=== PATIENT | male | born 1955 | race Caucasian/White ===

== ENCOUNTER → 2017-01-09 | Outpatient (CLI) | payer BC ==
--- NOTE | 2017-01-09 15:30 | CT ---
EXAMINATION TYPE: CT sinus wo con DATE OF EXAM: 01/09/2017 COMPARISON: 04/25/2008 HISTORY: Facial pressure and pain with congestion since august of 2016. CT DLP: 615.9 mGycm. Automated Exposure Control for Dose Reduction was Utilized. TECHNIQUE: CT scan of the sinuses is performed without contrast, axial images are obtained, coronal r eformatted images are also reviewed. FINDINGS: The paranasal sinuses including the frontal, ethmoid, sphenoid, and maxillary sinuses bila terally are well-aerated without abnormal opacification. The ostiomeatal complex is patent bilateral ly on the coronal images. Visualized portion of mastoid air cells show no abnormal opacification. The globes are intact bilate rally. Nasal septal deviation noted. Hypoplastic frontal sinus. Bilateral lexus bullosa noted. IMPRESSION: The sinuses are clear and the ostiomeatal complex is patent bilaterally.
== END | disposition home or self-care (01) ==
LOC: RADCTMAIN 14:56
PROVIDERS: ATTEND Otolaryngology
DX: J32.9 Chronic sinusitis, unspecified (principal)
CPT/HCPCS: 70486

== ENCOUNTER 2017-02-13 07:47 | Day surgery (SDC) | payer BC ==
--- NOTE | 2017-02-13 08:42 | US ---
EXAMINATION TYPE: US thyroid st tissue head/neck DATE OF EXAM: 02/13/2017 COMPARISON: NONE CLINICAL HISTORY: R22.1 swelling/mass/lump neck. Right submandibular hypoechoic mass measuring 5.5 x 1.5 x 3.3cm. There is heterogeneous hypoechoic well-defined oval-shaped submandibular solid mass along inferior as pect on images saved. IMPRESSION: A 5.5 cm inferior right submandibular solid mass is confirmed, neoplasm is not excluded, further investigation with ultrasound guided fine-needle aspiration is being performed currently.
[2017-02-13 09:00] VITALS: RESP 14; TEMP 98
[2017-02-13 09:54] VITALS: BP 180/100; PULSE 73
--- NOTE | 2017-02-13 10:49 | US ---
EXAMINATION TYPE: US core biopsy thorax or neck, fine-needle aspiration of submandibular mass DATE OF EXAM: 02/13/2017 COMPARISON: Ultrasound same day HISTORY: Right submandibular mass PROCEDURE: Maximal barrier technique was utilized. The skin overlying the right thyroid nodule was l ocalized with ultrasound and the overlying skin prepped and draped. Ultrasound used with dental laboratory technology teacher nique. Lidocaine used for local anesthesia, aspiration performed of the 20-gauge and subsequently 21 -gauge needle, and a skin emily made with a scalpel. 18-gauge core needle advanced into the nodule un bailee ultrasound guidance core specimen obtained and submitted in formalin to pathology. Following the procedure hemostasis achieved. No immediate complication. The patient remained in stable condition and was discharged. IMPRESSION: Status post ultrasound guided core biopsy and fine-needle aspiration of right submandibul ar mass, pathology pending.
--- NOTE | 2017-02-13 14:18 | XR ---
EXAMINATION TYPE: XR chest 2V DATE OF EXAM: 02/13/2017 COMPARISON: NONE HISTORY: Cough, right-sided neck mass TECHNIQUE: Frontal and lateral views of the chest are obtained. FINDINGS: There is no focal air space opacity, pleural effusion, or pneumothorax seen. The cardiac silhouette size is within normal limits. The patient is rotated. Postop changes are present in the up per abdomen. The osseous structures are intact. IMPRESSION: No acute cardiopulmonary process.
== END 2017-02-13 09:59 | disposition home or self-care (01) ==
LOC: RADPROMAIN 07:47 → EDSTATUS 08:00 → RADPROMAIN 09:59
PROVIDERS: ATTEND Otolaryngology
DX: R22.1 Localized swelling, mass and lump, neck (principal); R05 Cough
CPT/HCPCS: 10022; 20206; 21550; 42400; 71020; 76536; 76942; 88173; 88305

== ENCOUNTER → 2017-03-21 | Outpatient (CLI) | payer BC ==
--- NOTE | 2017-03-21 17:28 | CT ---
EXAMINATION TYPE: CT soft tissue neck w con DATE OF EXAM: 03/21/2017 COMPARISON: NONE HISTORY: Right sided neck swelling and pain. CT DLP: 844 mGycm CONTRAST: Patient injected with 100 mL of Omnipaque 300. TECHNIQUE: Axial images at 3 mm thick sections. Reconstructed images in the coronal plane and sagitt al plane are reviewed. FINDINGS: Limited CT sections are obtained the lung apices. The lung apices appear clear. CT neck: The torus tubarius and fossa of Rosenmuller are normal. Dance Studio Manager spaces are normal. Para nasal sinuses and mastoid air cells are clear. Parotid glands appear normal and symmetrical. Submandibular glands, are normal. The right submandib ular gland however is displaced anteriorly by a large oval mass measuring 2.5 x 3.6 cm. Enlarged jugu lodigastric lymph node could be considered. Parapharyngeal spaces are normal. The hypopharynx appears within normal limits. Vocal cord level appear symmetrical. Thyroid as visualized is normal. Osseous structures are normal. Note is made of an enlarged ascending thoracic aorta measuring 4.1 cm. IMPRESSIONS: 1. Enlarged mass between the right submandibular gland and sternocleidomastoid muscle extending towar ds the jugulodigastric region. Jugulodigastric abnormal lymph node is favored within the differential . Consider ultrasound for additional evaluation. 2. Ascending thoracic aortic aneurysm measuring 4.1 cm AP dimension.
== END | disposition home or self-care (01) ==
LOC: RADCTMAIN 16:04
PROVIDERS: ATTEND Otolaryngology
DX: R22.1 Localized swelling, mass and lump, neck (principal); I71.2 Thoracic aortic aneurysm, without rupture
CPT/HCPCS: 70491; Q9967

== ENCOUNTER 2018-03-04 09:58 | Emergency (ER) | payer BC ==
[2018-03-04] MEDS ORDERED: hydrALAZINE HCL 20 MG/ML 1 ML VIAL IVP STA (10:29)
--- NOTE | 2018-03-04 10:33 | ED ---
General Adult HPI - General Chief complaint: Recheck/Abnormal Lab/Rx Stated complaint: Hypertensive Time Seen by Provider: 03/04/18 10:00 Source: patient, RN notes reviewed Mode of arrival: ambulatory Limitations: no limitations - History of Present Illness Initial comments: This is a 62-year-old male who presents emergency Department complaining of his blood pressure being high. Patient states he felt a little off work and this is how he feels when his blood pressure goes high. Patient states he did his blood pressure was 211 systolic so decided come the emergency department. Patient states he had a little tingling in his left arm but no actual weakness. Patient denies any headache patient denies blurred vision patient denies slurred speech. Patient denies any numbness or weakness chest tingling in the left arm a little. Patient denies any chest pain difficulty breathing or shortness of breath. Patient denies any abdominal pain patient denies nausea vomiting diarrhea. Patient denies any recent fever chills or cough. - Related Data Home Medications Medication Instructions Recorded Confirmed Aspirin EC [Ecotrin Low Dose] 81 mg PO DAILY PRN 03/04/18 03/04/18 Losartan [Cozaar] 50 mg PO DAILY 03/04/18 03/04/18 Allergies Allergy/AdvReac Type Severity Reaction Status Date / Time No Known Allergies Allergy Verified 03/04/18 10:33 Review of Systems ROS Statement: Those systems with pertinent positive or pertinent negative responses have been documented in the HPI. ROS Other: All systems not noted in ROS Statement are negative. Past Medical History Past Medical History: Hypertension, Renal Disease Additional Past Medical History / Comment(s): Hx of kidney stones, borderline high cholesterol. History of Any Multi-Drug Resistant Organisms: None Reported Past Surgical History: Cholecystectomy Past Anesthesia/Blood Transfusion Reactions: No Reported Reaction Past Psychological History: No Psychological Hx Reported Smoking Status: Former smoker Past Alcohol Use History: None Reported Past Drug Use History: None Reported - Past Family History Mother Family Medical History: CVA/TIA General Exam - General Exam Comments Initial Comments: GENERAL: Patient is well-developed and well-nourished. Patient is nontoxic and well- hydrated and is in no acute distress. ENT: Neck is soft and supple. No significant lymphadenopathy is noted. Oropharynx is clear. Moist mucous membranes. Neck has full range of motion without eliciting any pain. There is no thyroid enlargement and no masses were felt. EYES: The sclera were anicteric and conjunctiva were pink and moist. Extraocular movements were intact and pupils were equal round and reactive to light. Eyelids were unremarkable. PULMONARY: Unlabored respirations. Good breath sounds bilaterally. No audible rales rhonchi or wheezing was noted. CARDIOVASCULAR: There is a regular rate and rhythm without any murmurs gallops or rubs. Femoral pulses are equal bilaterally ABDOMEN: Soft and nontender with normal bowel sounds. No palpable organomegaly was noted. There is no palpable pulsatile mass. SKIN: Skin is clear with no lesions or rashes and otherwise unremarkable. NEUROLOGIC: Patient is alert and oriented x3. Cranial nerves II through XII are grossly intact. Motor and sensory are also intact. Normal speech, volume and content. Symmetrical smile. Cerebellar exam grossly intact. MUSCULOSKELETAL: Normal extremities with adequate strength and full range of motion. No lower extremity swelling or edema. No calf tenderness. LYMPHATICS: No significant lymphadenopathy is noted PSYCHIATRIC: Normal psychiatric evaluation. Normal interpersonal interactions appears functionally intact in deals appropriately with others. No signs of depression. No signs of anxiety. No delusions. No hallucinations. Limitations: no limitations Course Vital Signs 03/04/18 03/04/18 03/04/18 09:59 10:37 11:00 Temperature 98.2 F Pulse Rate 88 73 76 Respiratory 20 20 18 Rate Blood Pressure 191/107 184/107 150/71 O2 Sat by Pulse 98 99 98 Oximetry 03/04/18 11:30 Temperature Pulse Rate 73 Respiratory 18 Rate Blood Pressure 121/65 O2 Sat by Pulse 99 Oximetry Medical Decision Making - Medical Decision Making EKG shows normal sinus rhythm at 79 bpm MA interval 240 QRS is 94 QT interval 384 QTC is 440. Patient's EKG shows no ST segment elevation or depression. - Lab Data Result diagrams: 03/04/18 10:25 03/04/18 10:25 Lab Results 03/04/18 03/04/18 03/04/18 Range/Units 10:25 10:25 10:25 WBC 5.6 (3.8-10.6) k/uL RBC 4.90 (4.30-5.90) m/uL Hgb 14.7 (13.0-17.5) gm/dL Hct 43.9 (39.0-53.0) % MCV 89.5 (80.0-100.0) fL MCH 30.0 (25.0-35.0) pg MCHC 33.5 (31.0-37.0) g/dL RDW 12.9 (11.5-15.5) % Plt Count 328 (150-450) k/uL Neutrophils % 61 % Lymphocytes % 29 % Monocytes % 6 % Eosinophils % 2 % Basophils % 0 % Neutrophils # 3.4 (1.3-7.7) k/uL Lymphocytes # 1.6 (1.0-4.8) k/uL Monocytes # 0.3 (0-1.0) k/uL Eosinophils # 0.1 (0-0.7) k/uL Basophils # 0.0 (0-0.2) k/uL PT (9.0-12.0) sec INR (<1.2) APTT (22.0-30.0) sec Sodium 143 (137-145) mmol/L Potassium 4.3 (3.5-5.1) mmol/L Chloride 108 H (98-107) mmol/L Carbon Dioxide 25 (22-30) mmol/L Anion Gap 10 mmol/L BUN 14 (9-20) mg/dL Creatinine 0.92 (0.66-1.25) mg/dL Est GFR (CKD-EPI)AfAm >90 (>60 ml/min/1.73 sqM) Est GFR (CKD-EPI)NonAf >90 (>60 ml/min/1.73 sqM) Glucose 116 H (74-99) mg/dL Calcium 9.4 (8.4-10.2) mg/dL Magnesium 2.1 (1.6-2.3) mg/dL Total Bilirubin 0.5 (0.2-1.3) mg/dL AST 27 (17-59) U/L ALT 36 (21-72) U/L Alkaline Phosphatase 59 (38-126) U/L Total Creatine Kinase 130 (55-170) U/L CK-MB (CK-2) 0.6 (0.0-2.4) ng/mL CK-MB (CK-2) Rel Index 0.5 Troponin I <0.012 (0.000-0.034) ng/mL Total Protein 7.2 (6.3-8.2) g/dL Albumin 4.3 (3.5-5.0) g/dL 03/04/18 Range/Units 10:25 WBC (3.8-10.6) k/uL RBC (4.30-5.90) m/uL Hgb (13.0-17.5) gm/dL Hct (39.0-53.0) % MCV (80.0-100.0) fL MCH (25.0-35.0) pg MCHC (31.0-37.0) g/dL RDW (11.5-15.5) % Plt Count (150-450) k/uL Neutrophils % % Lymphocytes % % Monocytes % % Eosinophils % % Basophils % % Neutrophils # (1.3-7.7) k/uL Lymphocytes # (1.0-4.8) k/uL Monocytes # (0-1.0) k/uL Eosinophils # (0-0.7) k/uL Basophils # (0-0.2) k/uL PT 10.1 (9.0-12.0) sec INR 1.0 (<1.2) APTT 23.2 (22.0-30.0) sec Sodium (137-145) mmol/L Potassium (3.5-5.1) mmol/L Chloride (98-107) mmol/L Carbon Dioxide (22-30) mmol/L Anion Gap mmol/L BUN (9-20) mg/dL Creatinine (0.66-1.25) mg/dL Est GFR (CKD-EPI)AfAm (>60 ml/min/1.73 sqM) Est GFR (CKD-EPI)NonAf (>60 ml/min/1.73 sqM) Glucose (74-99) mg/dL Calcium (8.4-10.2) mg/dL Magnesium (1.6-2.3) mg/dL Total Bilirubin (0.2-1.3) mg/dL AST (17-59) U/L ALT (21-72) U/L Alkaline Phosphatase (38-126) U/L Total Creatine Kinase (55-170) U/L CK-MB (CK-2) (0.0-2.4) ng/mL CK-MB (CK-2) Rel Index Troponin I (0.000-0.034) ng/mL Total Protein (6.3-8.2) g/dL Albumin (3.5-5.0) g/dL Disposition Clinical Impression: Hypertension Disposition: HOME SELF-CARE Condition: Good Instructions: Hypertension (ED) Is patient prescribed a controlled substance at d/c from ED?: No Referrals: Thomas Pro DO [Primary Care Provider] - 1-2 days Time of Disposition: 12:57
[2018-03-04 10:43] LABS: Basophils % (A) 0 %; Eosinophils # (A) 0.1 k/uL (0-0.7); Eosinophils % (A) 2 %; HCT 43.9 % (39.0-53.0); HGB 14.7 gm/dL (13.0-17.5); Lymphocytes # (A) 1.6 k/uL (1.0-4.8); Lymphocytes % (A) 29 %; MCHC 33.5 g/dL (31.0-37.0); MCV 89.5 fL (80.0-100.0); Mean Platelet Volume 6.6; Monocytes # (A) 0.3 k/uL (0-1.0); Monocytes % (A) 6 %; Neutrophils # (A) 3.4 k/uL (1.3-7.7); Neutrophils % (A) 61 %; Platelet Count 328 k/uL (150-450); RDW 12.9 % (11.5-15.5); WBC 5.6 k/uL (3.8-10.6)
[2018-03-04 10:57] LABS: Partial Thromboplastin Time 23.2 sec (22.0-30.0); Prothrombin Time 10.1 sec (9.0-12.0)
[2018-03-04 11:00] LABS: ALT 36 U/L (21-72); AST 27 U/L (17-59); Albumin 4.3 g/dL (3.5-5.0); Alkaline Phosphatase 59 U/L (38-126); Anion Gap 10 mmol/L; Blood Urea Nitrogen 14 mg/dL (9-20); Calcium 9.4 mg/dL (8.4-10.2); Carbon Dioxide 25 mmol/L (22-30); Chloride 108 mmol/L (98-107); Glucose 116 mg/dL (74-99); Magnesium 2.1 mg/dL (1.6-2.3); Potassium 4.3 mmol/L (3.5-5.1); Sodium 143 mmol/L (137-145); Total Bilirubin 0.5 mg/dL (0.2-1.3); Total Protein 7.2 g/dL (6.3-8.2)
[2018-03-04 11:06] LABS: Creatine Kinase 130 U/L (55-170)
[2018-03-04 11:07] VITALS: RESP 18
[2018-03-04 11:18] LABS: Creatine Kinase MB 0.6 ng/mL (0.0-2.4); Troponin I <0.012 ng/mL (0.000-0.034)
--- NOTE | 2018-03-04 11:28 | CT ---
EXAMINATION TYPE: CT brain wo con DATE OF EXAM: 03/04/2018 COMPARISON: None HISTORY: hypertension CT DLP: 1030.[address] of the brain was performed. The ventricles, basal cisterns and sulci overlying the cerebral convexities demonstrate mild enlargem ent. There is no evidence for intracranial hemorrhage or sulcal effacement. There is decreased attenuation about the periventricular white matter and deep white matter of both c erebral hemispheres, compatible with chronic small vessel ischemia. Differential diagnosis does inclu de demyelination. No mass effects are seen.No midline shift. Osseous calvarium is intact. If symptoms persist consider MRI. IMPRESSION: 1. Age related atrophic and chronic small vessel ischemic change without acute intracranial process s een at this time.
--- NOTE | 2018-03-04 11:29 | XR ---
EXAMINATION TYPE: XR chest 2V DATE OF EXAM: 03/04/2018 COMPARISON: 02/13/2017 TECHNIQUE: PA and lateral views submitted. HISTORY: Chest pain FINDINGS: The lungs are clear and there is no pneumothorax, pleural effusion, or focal pneumonia. Limited insp iration. No overt failure. IMPRESSION: 1. No acute process.
[2018-03-04 13:09] VITALS: BP 129/83; PULSE 66; TEMP 98
== END 2018-03-04 13:05 | disposition home or self-care (01) ==
LOC: EC 09:58
DX: I10 Essential (primary) hypertension (principal); R20.2 Paresthesia of skin; Z87.891 Personal history of nicotine dependence; Z79.899 Other long term (current) drug therapy; Z87.442 Personal history of urinary calculi
CPT/HCPCS: 96374 ×2; 99284 ×2; 36415; 93005; 80053; 82550; 82553; 83735; 84484; 85025; 85610; 85730; 71046; 70450; J0360

== ENCOUNTER → 2018-06-21 | Outpatient (CLI) | payer BC ==
--- NOTE | 2018-06-21 11:56 | MR ---
EXAMINATION TYPE: MR knee RT wo con DATE OF EXAM: 06/21/2018 COMPARISON: None HISTORY: Right knee pain TECHNIQUE: Multiplanar, multisequence imaging of the right knee is performed without IV contrast. FINDINGS: MEDIAL MENISCUS: Anterior and posterior horns are intact without tear. LATERAL MENISCUS: Anterior and posterior horns are intact without tear. CRUCIATE LIGAMENTS: The anterior and posterior cruciate ligaments are intact and unremarkable. COLLATERAL LIGAMENTS: The medial collateral ligament and lateral collateral ligament complex are inta ct and unremarkable. EXTENSOR MECHANISM: Visualized quadriceps and patellar tendons are intact. EFFUSION: Very minimal joint effusion is present. This may be within the physiologic range. POPLITEAL CYST: No popliteal/blanc cyst. TRICOMPARTMENT SPACES: Joint spaces are preserved CARTILAGE: Intact BONE MARROW SIGNAL: No focal abnormal marrow signal is appreciated. OTHER: No additional significant abnormality is appreciated. IMPRESSION: No suspicious abnormality to account for pain
== END | disposition home or self-care (01) ==
LOC: RADMRIMAIN 07:26
PROVIDERS: ATTEND Orthopaedic Surgery
DX: M25.561 Pain in right knee (principal)

== ENCOUNTER → 2018-07-17 | Outpatient (CLI) | payer BC ==
--- NOTE | 2018-07-17 11:00 | US ---
EXAMINATION TYPE: US renal artery duplex complet DATE OF EXAM: 07/17/2018 COMPARISON: NONE CLINICAL HISTORY: I10 Hypertension. HTN for 6 months MEASUREMENTS: RENAL SIZE: Rt Kidney: 11.6 x 4.4 x 4.8cm Lt Kidney: 11.2 x 5.3 x 4.3cm RESISTANCE INDEX Right: 0.62 Left: 0.60 RA/AO RATIO (< 3.5 ) Right: 1.6 Left: 1.6 RA VELOCITY ( < 180 cm/s) Right: 140.9 cm/s Left: 137.9 cm/s Technical limitations due to large amount of overlying bowel content. Proximal aorta is obscured. V isualized portions of aorta appear unremarkable. Anechoic focus midpole right kidney = 3.9 x 2.8 x 4. 1cm, imperceptible wall and increased through transmission. No evidence of renal artery stenosis as v isualized. Grayscale, color Doppler, spectral Doppler imaging performed of the renal arteries and abdominal aort a. Risk upstroke noted in the renal arteries, there is low resistance diastolic flow IMPRESSION: Exam is somewhat limited. Renal artery stenosis is not evident. Simple cyst right kidney.
== END | disposition home or self-care (01) ==
LOC: RADUSMAIN 07:06
PROVIDERS: ATTEND Family Medicine
DX: N28.1 Cyst of kidney, acquired (principal); I10 Essential (primary) hypertension
CPT/HCPCS: 93975

== ENCOUNTER → 2018-08-29 | Outpatient (CLI) | payer BC ==
--- NOTE | 2018-08-29 19:37 | CONS ---
CONSULTATION DATE OF SERVICE: 08/29/2018 This patient is a 63-year-old gentleman who has been evaluated in [facility] for multiple awakenings from sleep and snoring, possible obstructive sleep apnea-hypopnea syndrome. 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 Consequently his sleep schedule changes. When he works the day shift, he goes to bed around 9 p.m. and sleeps until 3 a.m. 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 until 1 a.m. On days off, he sleeps from around 11 p.m. until 8 a.m. Usually he has no significant problems with falling asleep, but the patient has multiple awakenings from sleep, up to 5 times. He has a TV set in the bedroom. He prefers to sleep on the side position. Over the last 5 years his weight has increased by around 16 pounds. After the sleep in the morning he may feel sleepy, falling asleep during the day, having problems with concentration. [place] Sleepiness Scale is increased to 11. PAST MEDICAL HISTORY: Positive for hypertension. PAST SURGICAL HISTORY: Cholecystectomy. MEDICATIONS: 1. Losartan. 2. Zolpidem 5 mg when he goes to bed. Zolpidem does help him to sleep better. SOCIAL HISTORY: Positive for smoking for about 20 pack/years; he quit 2-1/2 years ago. Alcohol consumption none at the present time. REVIEW OF SYSTEMS: Multiple awakenings from sleep, tiredness, sleepiness during the day. PHYSICAL EXAMINATION: GENERAL: A pleasant gentleman without distress. VITAL SIGNS: BP 133/83, HR 76, RR 16, height 5 feet 9-1/2 inches, weight 215 pounds. Body mass index 31.2, temperature 98.1, oxygen saturation at room air 97%. HEENT: PERRLA, EOMI. Evaluation of oropharynx showed tongue protrudes midline. Extremely low position of soft palate. Mallampati IV. Restriction of nasal breathing; possibly nasal septum deviation. NECK: Supple. No JVD. Thyroid is not palpable. Wide neck; 16-1/2 inches in circumference. LUNGS: Clear to percussion and to auscultation. Good air exchange. No wheezing or rhonchi. HEART: S1, S2 regular. No murmurs, gallops or rubs. ABDOMEN: Slightly obese. EXTREMITIES: No clubbing or cyanosis. SAND TEMPERER: Awake, alert, and oriented X3. Cranial nerves 2 to 7 intact. There is no fasciculation or atrophy. noted. No focal deficits observed. IMPRESSION: 1. Snoring, multiple awakenings from sleep, extremely low position of soft palate, wide neck, excessive daytime sleepiness; obstructive sleep apnea-hypopnea syndrome. 2. Swing shift worker. Shift work sleep disorder. 3. Hypertension. 4. Status post cholecystectomy. 5. Mild obesity with body mass index of 31.2. 6. Restriction of nasal breathing; possible nasal septum deviation. PLAN: 1. Polysomnography for evaluation of patient's breathing during sleep. 2. CPAP/BiPAP titration if sleep study confirms obstructive sleep apnea-hypopnea syndrome. 3. Preferable position during sleep on the side. 4. No driving if patient feels any sleepiness. 5. I will see patient for follow up visit to explain results of testing and following plan. Thank you very much for referring this patient for consultation. Sincerely, Jam Appiah MD, PhD, FAASM Diplomat of [employer] [facility] [place] MMODL / IJN: [id number] /
== END | disposition home or self-care (01) ==
LOC: SLEEP 15:53
PROVIDERS: ATTEND Internal Medicine
DX: G47.33 Obstructive sleep apnea (adult) (pediatric) (principal); R06.89 Other abnormalities of breathing; I10 Essential (primary) hypertension; E66.9 Obesity, unspecified; Z79.899 Other long term (current) drug therapy; Z90.49 Acquired absence of other specified parts of digestive tract; Z87.891 Personal history of nicotine dependence; Z68.31 Body mass index [BMI] 31.0-31.9, adult
CPT/HCPCS: 99211

== ENCOUNTER 2018-10-30 07:57 | Day surgery (SDC) | payer BC ==
[2018-10-29 12:28] VITALS: BMI 28.7
[~2018-10-30 07:57] MED LIST: LACTATED RINGERS 1,000 ML IV SCH; LIDOCAINE 1% 20 ML VIAL (10MG/ML) FOR IV START INTRADERMA PRN
[2018-10-30 08:24] VITALS: TEMP 97.9
[2018-10-30] MEDS ORDERED: PROPOFOL 10 MG/ML 20 ML VIAL IV ONE (08:49)
[2018-10-30] MEDS ORDERED: LIDOCAINE 1% INJ 10MG/ML (20 ML MDV) ONE (08:49)
--- NOTE | 2018-10-30 09:05 | P.PCN ---
Date of Procedure: 10/30/18 Procedure(s) Performed: BRIEF HISTORY: Patient is a 63-year-old pleasant white male, scheduled for an elective colonoscopy as a part of screening for colon neoplasia. PROCEDURE PERFORMED: Colonoscopy with snare polypectomy. PREOPERATIVE DIAGNOSIS: Screening for colon cancer. IV sedation per Anesthesia. PROCEDURE: After informed consent was obtained, the patient, was brought into the endoscopy unit. IV sedation was administered by Anesthesia under continuous monitoring. Digital rectal examination was normal. Initially the Olympus CF-160 flexible video colonoscope was then inserted in the rectum, gradually advanced into the cecum without any difficulty. Careful examination was performed as the scope was gradually being withdrawn. Ileocecal valve and the appendiceal orifice were visualized and appeared normal. Prep was excellent. Mucosa of the cecum, ascending colon, transverse colon, descending colon, sigmoid colon, and rectum appeared normal. There is a 1 cm proximal rectal polyp that was removed by snare polypectomy. Retroflexion was performed in the rectum and small internal hemorrhoid were seen. The patient tolerated the procedure well. IMPRESSION: 1 cm proximal rectal polyp status post polypectomy Small internal hemorrhoids RECOMMENDATIONS: Findings of this examination were discussed with the patient well as his family. He was advised to follow with the biopsy results. If the biopsy shows adenoma, he can have a repeat colonoscopy in 3-5 years.
[2018-10-30 09:12] VITALS: RESP 14
[2018-10-30 09:23] VITALS: BP 111/67; PULSE 65
== END 2018-10-30 09:37 | disposition home or self-care (01) ==
LOC: ORWHC2ENDO 07:57
PROVIDERS: ATTEND Internal Medicine Gastroenterology
DX: Z12.11 Encounter for screening for malignant neoplasm of colon (principal); K64.8 Other hemorrhoids; D12.8 Benign neoplasm of rectum; I10 Essential (primary) hypertension; Z87.891 Personal history of nicotine dependence; Z79.82 Long term (current) use of aspirin; Z79.899 Other long term (current) drug therapy
CPT/HCPCS: 88305; 45385; J2001; J2704

== ENCOUNTER → 2019-04-17 | Outpatient (CLI) | payer BC ==
--- NOTE | 2019-04-17 17:17 | PN ---
PROGRESS NOTE DATE OF SERVICE: 04/17/2019 This patient is a 64-year-old gentleman who has been followed in Sleep Center for treatment of obstructive sleep apnea-hypopnea syndrome. I saw this patient about 6 months ago. At that time I recommended proceeding with a sleep study, but for different reasons the patient was not able to do it. The patient continues to have problem with his sleep. He continues to have multiple awakenings from sleep. 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 Consequently his sleep schedule depends on his work schedule. On the days when he works the day shift, he goes to bed around 9 p.m. and sleeps until 3 a.m. 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 until 1 a.m. MEDICATIONS: Zolpidem occasionally on a p.r.n. basis to help him fall asleep. PHYSICAL EXAMINATION: GENERAL: A pleasant patient in no distress. VITAL SIGNS: BP 149/89, HR 68, RR 16, height 5 feet 9-1/2 inches, weight 184 pounds, which is about 30 pounds less than during the previous visit. Body mass index 26.7. Temperature 97.8, oxygen saturation at room air 99%. HEENT: PERRLA, EOMI. Evaluation of oropharynx showed tongue protrudes midline. Extremely low position of soft palate. Mallampati IV. Some restriction of nasal breathing; possibly nasal septum deviation. NECK: Supple. No JVD. Thyroid is not palpable. LUNGS: Clear to percussion and to auscultation. Good air exchange. No wheezing or rhonchi. HEART: S1, S2 regular. No murmurs, gallops or rubs. ABDOMEN: Soft and nontender. Bowel sounds are present. No organomegaly. EXTREMITIES: No clubbing or cyanosis. ER TECH: Awake, alert, and oriented X3. Cranial nerves 2 to 7 intact. There is no fasciculation or atrophy. noted. No focal deficits observed. IMPRESSION: 1. Multiple awakenings from sleep, extremely low position of soft palate, Mallampati IV, restriction of nasal breathing; possible obstructive sleep apnea-hypopnea syndrome. 2. Swing-shift worker; shift work sleep disorder. 3. Hypertension. 4. Status post cholecystectomy. 5. Restriction of nasal breathing; possibly nasal septum deviation. PLAN: 1. Polysomnography for evaluation of patient's breathing during sleep. 2. CPAP titration if sleep study is positive for obstructive sleep apnea-hypopnea syndrome. 3. No driving if feeling any sleepiness. 4. Sleep hygiene with regular time in bed for 7-1/2 to 8 hours. Thank you very much for allowing me to participate in the management of your patient. Sincerely, Jam Appiah MD, PhD, FAASM Diplomat of [employer] [facility] [place] MMODL / IJN: [id number] /
== END ==
LOC: SLEEP 15:41
PROVIDERS: ATTEND Internal Medicine
DX: G47.8 Other sleep disorders (principal); I10 Essential (primary) hypertension; J98.8 Other specified respiratory disorders; Z79.899 Other long term (current) drug therapy; Z90.49 Acquired absence of other specified parts of digestive tract

== ENCOUNTER 2020-10-15 08:25 | Inpatient (IN) | payer BC ==
[2020-10-15] MEDS ORDERED: SODIUM CHLORIDE 0.9% 500 ML 500 ML IV STA (08:39)
[2020-10-15] MEDS ORDERED: NITROGLYCERIN SL TABS 0.4 MG TAB SUBLINGUAL STA (08:39)
[2020-10-15] MEDS ORDERED: ASPIRIN 81 MG PO STA (08:39)
[2020-10-15] MEDS ORDERED: NITROGLYCERIN OINT 1 INCH/GM PACKET TOPICAL STA (08:39)
--- NOTE | 2020-10-15 08:42 | ED ---
General Adult HPI - General Chief complaint: Chest Pain Stated complaint: Chest pain Time Seen by Provider: 10/15/20 08:25 Source: patient, RN notes reviewed, old records reviewed Mode of arrival: ambulatory Limitations: no limitations - History of Present Illness Initial comments: This is a 65-year-old male who presents emergency department with past medical history significant for high blood pressure and high cholesterol. Patient also states his family history is positive for cardiac disease. Patient states he started having chest pain yesterday and it lasts about 10 minutes and then it woke him up overnight and this morning he is been having for at least an hour now. Patient states it radiated to his back earlier currently is not radiating to his back. Patient states he was short of breath every time he had an episode of chest pain. Patient denies any diaphoretic episodes. Patient states he was mildly nauseated earlier. Patient states the pain at one point in the middle night was about a 10 and now it's less than the 5 without any radiation. Patient denies any recent fever chills or cough per patient states he didn't take his blood pressure medicines this morning. Patient denies any abdominal pain. Patient denies any leg pain or swelling. - Related Data Home Medications Medication Instructions Recorded Confirmed amLODIPine [Norvasc] 2.5 mg PO DAILY 10/15/20 10/15/20 Allergies Allergy/AdvReac Type Severity Reaction Status Date / Time No Known Allergies Allergy Verified 10/15/20 09:18 Review of Systems ROS Statement: Those systems with pertinent positive or pertinent negative responses have been documented in the HPI. ROS Other: All systems not noted in ROS Statement are negative. Past Medical History Past Medical History: Hypertension Additional Past Medical History / Comment(s): Hx of kidney stones, borderline high cholesterol. History of Any Multi-Drug Resistant Organisms: None Reported Past Surgical History: Cholecystectomy Additional Past Surgical History / Comment(s): colonoscopy, ganglion cyst removed from neck Past Anesthesia/Blood Transfusion Reactions: No Reported Reaction Past Psychological History: No Psychological Hx Reported Smoking Status: Former smoker Past Alcohol Use History: None Reported Past Drug Use History: None Reported - Past Family History Mother Family Medical History: CVA/TIA General Exam - General Exam Comments Initial Comments: GENERAL: Patient is well-developed and well-nourished. Patient is nontoxic and well- hydrated and is in mild distress. ENT: Neck is soft and supple. No significant lymphadenopathy is noted. Oropharynx is clear. Moist mucous membranes. Neck has full range of motion without eliciting any pain. EYES: The sclera were anicteric and conjunctiva were pink and moist. Extraocular movements were intact and pupils were equal round and reactive to light. Eyelids were unremarkable. PULMONARY: Unlabored respirations. Good breath sounds bilaterally. No audible rales rhonchi or wheezing was noted. CARDIOVASCULAR: There is a regular rate and rhythm without any murmurs gallops or rubs. ABDOMEN: Soft and nontender with normal bowel sounds. SKIN: Skin is clear with no lesions or rashes and otherwise unremarkable. NEUROLOGIC: Patient is alert and oriented x3. Cranial nerves II through XII are grossly intact. Motor and sensory are also intact. Normal speech, volume and content. Symmetrical smile. MUSCULOSKELETAL: Normal extremities with adequate strength and full range of motion. No lower extremity swelling or edema. No calf tenderness. LYMPHATICS: No significant lymphadenopathy is noted PSYCHIATRIC: Normal psychiatric evaluation. Limitations: no limitations Course Vital Signs 10/15/20 10/15/20 10/15/20 08:26 09:03 09:51 Temperature 97.9 F Pulse Rate 90 86 88 Respiratory 18 18 18 Rate Blood Pressure 174/103 154/101 147/91 O2 Sat by Pulse 98 97 99 Oximetry Medical Decision Making - Medical Decision Making EKG shows normal sinus rhythm at 81 bpm [place] interval is on a 34 QRS is 92 QT interval 380 QTC is 450. Patient's EKG shows no ST segment elevation or depression. Patient was feeling better at the nitroglycerin. Pressure came down as well. Patient's EKG shows normal sinus rhythm at 71 bpm WY interval 152 QRS is 92 QT i nterval 396 QTC is 4:30. Patient's EKG shows no ST segment elevation or depression. Patient's troponin was elevated and I spoke with cardiology about. I spoke with Dr. Bhatia hospice agreed to accept the patient I admitted the patient I wrote admitting orders. - Lab Data Result diagrams: 10/15/20 08:36 10/15/20 08:36 Lab Results 10/15/20 10/15/20 10/15/20 Range/Units 08:36 08:36 08:36 WBC 6.5 (3.8-10.6) k/uL RBC 4.99 (4.30-5.90) m/uL Hgb 15.7 (13.0-17.5) gm/dL Hct 45.5 (39.0-53.0) % MCV 91.1 (80.0-100.0) fL MCH 31.4 (25.0-35.0) pg MCHC 34.4 (31.0-37.0) g/dL RDW 12.4 (11.5-15.5) % Plt Count 311 (150-450) k/uL MPV 6.6 Neutrophils % 56 % Lymphocytes % 33 % Monocytes % 7 % Eosinophils % 1 % Basophils % 0 % Neutrophils # 3.6 (1.3-7.7) k/uL Lymphocytes # 2.1 (1.0-4.8) k/uL Monocytes # 0.5 (0-1.0) k/uL Eosinophils # 0.1 (0-0.7) k/uL Basophils # 0.0 (0-0.2) k/uL PT 10.0 (9.0-12.0) sec INR 0.9 (<1.2) APTT 23.8 (22.0-30.0) sec D-Dimer <0.17 (<0.60) mg/L FEU Sodium 142 (137-145) mmol/L Potassium 4.4 (3.5-5.1) mmol/L Chloride 108 H (98-107) mmol/L Carbon Dioxide 25 (22-30) mmol/L Anion Gap 9 mmol/L BUN 13 (9-20) mg/dL Creatinine 0.92 (0.66-1.25) mg/dL Est GFR (CKD-EPI)AfAm >90 (>60 ml/min/1.73 sqM) Est GFR (CKD-EPI)NonAf 88 (>60 ml/min/1.73 sqM) Glucose 124 H (74-99) mg/dL Calcium 9.5 (8.4-10.2) mg/dL Magnesium 2.1 (1.6-2.3) mg/dL Total Bilirubin 0.6 (0.2-1.3) mg/dL AST 41 (17-59) U/L ALT 41 (4-49) U/L Alkaline Phosphatase 69 (38-126) U/L Troponin I (0.000-0.034) ng/mL NT-Pro-B Natriuret Pep pg/mL Total Protein 7.9 (6.3-8.2) g/dL Albumin 4.7 (3.5-5.0) g/dL 10/15/20 10/15/20 Range/Units 08:36 08:36 WBC (3.8-10.6) k/uL RBC (4.30-5.90) m/uL Hgb (13.0-17.5) gm/dL Hct (39.0-53.0) % MCV (80.0-100.0) fL MCH (25.0-35.0) pg MCHC (31.0-37.0) g/dL RDW (11.5-15.5) % Plt Count (150-450) k/uL MPV Neutrophils % % Lymphocytes % % Monocytes % % Eosinophils % % Basophils % % Neutrophils # (1.3-7.7) k/uL Lymphocytes # (1.0-4.8) k/uL Monocytes # (0-1.0) k/uL Eosinophils # (0-0.7) k/uL Basophils # (0-0.2) k/uL PT (9.0-12.0) sec INR (<1.2) APTT (22.0-30.0) sec D-Dimer (<0.60) mg/L FEU Sodium (137-145) mmol/L Potassium (3.5-5.1) mmol/L Chloride (98-107) mmol/L Carbon Dioxide (22-30) mmol/L Anion Gap mmol/L BUN (9-20) mg/dL Creatinine (0.66-1.25) mg/dL Est GFR (CKD-EPI)AfAm (>60 ml/min/1.73 sqM) Est GFR (CKD-EPI)NonAf (>60 ml/min/1.73 sqM) Glucose (74-99) mg/dL Calcium (8.4-10.2) mg/dL Magnesium (1.6-2.3) mg/dL Total Bilirubin (0.2-1.3) mg/dL AST (17-59) U/L ALT (4-49) U/L Alkaline Phosphatase (38-126) U/L Troponin I 0.273 H* (0.000-0.034) ng/mL NT-Pro-B Natriuret Pep 38 pg/mL Total Protein (6.3-8.2) g/dL Albumin (3.5-5.0) g/dL Critical Care Time Critical Care Time: Yes Total Critical Care Time: 35 Disposition Clinical Impression: Acute non-ST elevation myocardial infarction (NSTEMI) Disposition: ADMITTED IP TO THIS HOSP Referrals: Thomas Pro DO [Primary Care Provider] - 1-2 days Time of Disposition: 09:56
[2020-10-15 08:59] LABS: Basophils % (A) 0 %; Eosinophils # (A) 0.1 k/uL (0-0.7); Eosinophils % (A) 1 %; HCT 45.5 % (39.0-53.0); HGB 15.7 gm/dL (13.0-17.5); Lymphocytes # (A) 2.1 k/uL (1.0-4.8); Lymphocytes % (A) 33 %; MCH 31.4 pg (25.0-35.0); MCHC 34.4 g/dL (31.0-37.0); MCV 91.1 fL (80.0-100.0); Mean Platelet Volume 6.6; Monocytes # (A) 0.5 k/uL (0-1.0); Monocytes % (A) 7 %; Neutrophils # (A) 3.6 k/uL (1.3-7.7); Neutrophils % (A) 56 %; Platelet Count 311 k/uL (150-450); RBC 4.99 m/uL (4.30-5.90); RDW 12.4 % (11.5-15.5); WBC 6.5 k/uL (3.8-10.6)
[2020-10-15 09:16] LABS: ALT 41 U/L (4-49); AST 41 U/L (17-59); African American GFR (CKD) >90 (>60 ml/min/1.73 sqM); Albumin 4.7 g/dL (3.5-5.0); Alkaline Phosphatase 69 U/L (38-126); Anion Gap 9 mmol/L; Blood Urea Nitrogen 13 mg/dL (9-20); Calcium 9.5 mg/dL (8.4-10.2); Carbon Dioxide 25 mmol/L (22-30); Chloride 108 mmol/L (98-107); Glucose 124 mg/dL (74-99); Magnesium 2.1 mg/dL (1.6-2.3); Non-African American GFR(CKD) 88 (>60 ml/min/1.73 sqM); Potassium 4.4 mmol/L (3.5-5.1); Sodium 142 mmol/L (137-145); Total Bilirubin 0.6 mg/dL (0.2-1.3); Total Protein 7.9 g/dL (6.3-8.2)
[2020-10-15 09:20] LABS: INR 0.9 (<1.2)
[2020-10-15 09:21] LABS: D-Dimer <0.17 mg/L FEU (<0.60); Partial Thromboplastin Time 23.8 sec (22.0-30.0)
[2020-10-15] MEDS ORDERED: HEPARIN SODIUM 1,000 UN/ML (10ML VL) IV STA (09:49)
--- NOTE | 2020-10-15 09:53 | XR ---
EXAMINATION TYPE: XR chest 2V DATE OF EXAM: 10/15/2020 COMPARISON: Chest x-ray 03/04/2018 HISTORY: Chest pain TECHNIQUE: Frontal and lateral views of the chest are obtained. FINDINGS: There is no focal air space opacity, pleural effusion, or pneumothorax seen. The cardiac silhouette size is within normal limits. There are surgical clips in the upper abdomen. There are ove rlying cardiac leads. The osseous structures are intact. IMPRESSION: No acute cardiopulmonary process.
[2020-10-15] MEDS ORDERED: HEPARIN SOD,PORK IN 0.45% NACL 25,000 UNIT in 0.45% NACL 1 250ML.BAG IV SCH (10:00)
[2020-10-15] MEDS ORDERED: SODIUM CHLORIDE 0.9% 1,000 ML IV ONE (10:15)
[2020-10-15] MEDS ORDERED: ALPRAZolam 0.25 MG TAB PO PRN (10:39)
[2020-10-15] MEDS ORDERED: ALPRAZolam 0.5 MG TAB PO PRN (10:39)
[2020-10-15] MEDS ORDERED: ATORVASTATIN 80 MG TAB PO STA (10:39)
[2020-10-15] MEDS ORDERED: SODIUM CHLORIDE 0.9% 1,000 ML in EMPTY BAG 1 BAG IV ONE (10:39)
[2020-10-15] MEDS ORDERED: LIDOCAINE 1% INJ 10MG/ML (20 ML MDV) ONE (10:47)
[2020-10-15] MEDS ORDERED: fentaNYL (PF) 50 MCG/ML 2 ML AMP ONE (10:47)
[2020-10-15] MEDS ORDERED: VERAPAMIL 2.5 MG/ML 2 ML AMP ONE (11:02)
--- NOTE | 2020-10-15 11:04 | P.CRDCN ---
History of Present Illness History of present illness: HISTORY OF PRESENTING ILLNESS This is a pleasant 65-year-old male past medical history significant for hypertension, dyslipidemia and former nicotine dependence. He follows in the office with Dr. rCandall. We have been asked to see in consultation for chest pain. He states yesterday he noticed a burning sensation in the midsternal region that radiates through to the back. The symptoms are associated with shortness of breath, dizziness and diaphoresis. The symptoms persisted for most of the day yesterday with no specific aggravating or alleviating factor. He went to bed last night in no real distress however he woke up multiple times through the night with ongoing burning in his chest. When he woke up this morning to come to the hospital for further evaluation. He has had chest pain as recently as 10 minutes ago. The chest discomfort is relieved by nitro. DIAGNOSTICS EKG reveals sinus mechanism, left axis deviation with nonspecific ST abnormalities noted. Chest xray negative for an acute cardiopulmonary process. Laboratory reviewed, CBC unremarkable, d-dimer less than 0.17, sodium 142, potassium 4.4, creatinine 0.92, magnesium 2.1, troponin 0.273 and proBNP 38. Current cardiac medications include lithium 2.5 mg daily. REVIEW OF SYSTEMS At the time of my exam: CONSTITUTIONAL: Denies fever or chills. CARDIOVASCULAR: Denies chest pain, shortness of breath, orthopnea, PND or palpitations. RESPIRATORY: Denies cough. GASTROINTESTINAL: Denies abdominal pain, diarrhea, constipation, nausea or vomiting. MUSCULOSKELETAL: Denies myalgias. NEUROLOGIC: Denies numbness, tingling, headacbe or weakness. ENDOCRINE: Denies fatigue, weight change, polydipsia or polyurina. GENITOURINARY: Denies burning, hematuria or urgency with micturation. HEMATOLOGIC: Denies history of anemia or bleeding. PHYSICAL EXAMINATION Blood pressure 126/88 heart rate 88 afebrile and maintaining oxygen saturation on nasal cannula. CONSTITUTIONAL: No apparent distress. HEENT: Head is normocephalic. Pupils are equal, round. Sclerae anicteric. Mucous membranes of the mouth are moist. No JVD. No carotid bruit. CHEST EXAMINATION: Lungs are clear to auscultation. No chest wall tenderness is noted on palpation or with deep breathing. HEART EXAMINATION: Regular rate and rhythm. S1, S2 heard. No murmurs, gallops or rub. ABDOMEN: Soft, nontender. Positive bowel sounds. EXTREMITIES: 2+ peripheral pulses, no lower extremity edema and no calf tenderness. NEUROLOGIC EXAMINATION: Patient is awake, alert and oriented x3. ASSESSMENT Unstable angina Non-ST elevated myocardial infarction Hypertension Dyslipidemia Former nicotine dependence PLAN Recommend proceeding with cardiac catheterization. I have discussed the risks, benefits and alternative therapies for the above-mentioned procedure and for both sedation/analgesia as well as necessary blood product administration, if indicated, as they pertain to this patient. The patient has indicated understanding and acceptance of the risks and procedures discussed. Questions have been answered properly and he is agreeable to move forward with the above stated procedure. Check lipid panel. Obtain 2-D echocardiogram and Doppler study to assess cardiac structure and function. Further recommendations to follow based upon clinical course. Thank you kindly for this consultation. Nurse Practitioner note has been reviewed, I agree with a documented findings and plan of care. Patient was seen and examined. Past Medical History Past Medical History: Hypertension Additional Past Medical History / Comment(s): Hx of kidney stones, borderline high cholesterol. History of Any Multi-Drug Resistant Organisms: None Reported Past Surgical History: Cholecystectomy Additional Past Surgical History / Comment(s): colonoscopy, ganglion cyst removed from neck Past Anesthesia/Blood Transfusion Reactions: No Reported Reaction Past Psychological History: No Psychological Hx Reported Smoking Status: Former smoker Past Alcohol Use History: None Reported Past Drug Use History: None Reported - Past Family History Mother Family Medical History: CVA/TIA Medications and Allergies Home Medications Medication Instructions Recorded Confirmed Type amLODIPine [Norvasc] 2.5 mg PO DAILY 10/15/20 10/15/20 History Allergies Allergy/AdvReac Type Severity Reaction Status Date / Time No Known Allergies Allergy Verified 10/15/20 09:18 Physical Exam Vitals: Vital Signs Temp Pulse Resp BP Pulse Ox 10/15/20 10:37 88 20 126/88 97 10/15/20 09:51 88 18 147/91 99 10/15/20 09:03 86 18 154/101 97 10/15/20 08:26 97.9 F 90 18 174/103 98 Intake and Output 10/14/20 10/15/20 10/15/20 22:59 06:59 14:59 Other: Weight 95.254 kg Results 10/15/20 08:36 10/15/20 08:36 Cardiac Enzymes 10/15/20 10/15/20 Range/Units 08:36 08:36 AST 41 (17-59) U/L Troponin I 0.273 H* (0.000-0.034) ng/mL Coagulation 10/15/20 Range/Units 08:36 PT 10.0 (9.0-12.0) sec APTT 23.8 (22.0-30.0) sec CBC 10/15/20 Range/Units 08:36 WBC 6.5 (3.8-10.6) k/uL RBC 4.99 (4.30-5.90) m/uL Hgb 15.7 (13.0-17.5) gm/dL Hct 45.5 (39.0-53.0) % Plt Count 311 (150-450) k/uL Comprehensive Metabolic Panel 10/15/20 Range/Units 08:36 Sodium 142 (137-145) mmol/L Potassium 4.4 (3.5-5.1) mmol/L Chloride 108 H (98-107) mmol/L Carbon Dioxide 25 (22-30) mmol/L BUN 13 (9-20) mg/dL Creatinine 0.92 (0.66-1.25) mg/dL Glucose 124 H (74-99) mg/dL Calcium 9.5 (8.4-10.2) mg/dL AST 41 (17-59) U/L ALT 41 (4-49) U/L Alkaline Phosphatase 69 (38-126) U/L Total Protein 7.9 (6.3-8.2) g/dL Albumin 4.7 (3.5-5.0) g/dL Current Medications Generic Name Dose Route Start Last Admin Trade Name Freq PRN Reason Stop Dose Admin Alprazolam 0.25 mg 10/15/20 10:39 Alprazolam 0.25 Mg Tab PO Q6HR PRN Mild Anxiety Alprazolam 0.5 mg 10/15/20 10:39 Alprazolam 0.5 Mg Tab PO Q6HR PRN Moderate Anxiety Heparin Sodium/Sodium Chloride 250 mls @ 10 mls/hr 10/15/20 10:00 10/15/20 09:54 25,000 unit/ Sodium Chloride IV 10.498 units/kg/hr .Q24H YVROSE 10 mls/hr Administration Protocol 10.498 UNITS/KG/HR Sodium Chloride 1,000 mls @ 75 mls/hr 10/15/20 10:15 Saline 0.9% IV 10/15/20 23:34 .[id number] ONE Sodium Chloride 1,000 ml/ IV 1,000 mls @ 95.254 mls/hr 10/15/20 10:39 Solution IV 10/15/20 21:08 .[id number] ONE 1 ML/KG/HR Heparin Sodium (Porcine) 10, 1,001 mls @ 999 mls/hr 10/16/20 07:00 000 unit/ Sodium Chloride IRRIGATION 10/16/20 23:00 ONCE PRN INTRA-OP Heparin Sodium (Porcine) 2,500 250.5 mls @ 250 mls/hr 10/16/20 07:00 unit/ Sodium Chloride IRRIGATION 10/16/20 23:00 ONCE PRN INTRA-OP Intake and Output 10/14/20 10/15/20 10/15/20 22:59 06:59 14:59 Other: Weight 95.254 kg Patient Weight 10/16/20 06:59 Weight 95.254 kg 10/15/20 08:36 10/15/20 08:36
[2020-10-15 11:09] LABS: Cholesterol 232 mg/dL (<200); HDL Cholesterol 41 mg/dL (40-60); LDL Cholesterol,Calculated 156 mg/dL (0-99); Triglycerides 175 mg/dL (<150)
[2020-10-15] MEDS ORDERED: IV FLUID CONTINUATION 450 ML IV ONE (11:10)
[2020-10-15] MEDS: fentaNYL (PF) 50 MCG/ML 2 ML AMP IVP ONE ×2 (11:18→12:14)
[2020-10-15] MEDS ORDERED: MIDAZOLAM 2 MG/2 ML VIAL IVP ONE (11:18)
[2020-10-15] MEDS ORDERED: LIDOCAINE 1% INJ 10MG/ML (20 ML MDV) SQ ONE (11:20)
[2020-10-15] MEDS: VERAPAMIL SYRINGE (5 MG/10 ML) INTRAARTER ONE ×2 (11:24→12:34)
[2020-10-15] MEDS ORDERED: HEPARIN SODIUM 1,000 UN/ML (10ML VL) ONE (11:24)
[2020-10-15] MEDS: HEPARIN SODIUM 1,000 UN/ML (10ML VL) IVP ONE ×2 (11:26→11:49)
[2020-10-15] MEDS ORDERED: PRASUGREL 10 MG TAB ONE (11:47)
[2020-10-15] MEDS ORDERED: PRASUGREL 10 MG TAB PO ONE (11:53)
--- NOTE | 2020-10-15 11:57 | P.CARDCATH ---
Date of Procedure: 10/15/20 Preoperative Diagnosis: Non STEMI Postoperative Diagnosis: Triple-vessel disease Procedure(s) Performed: Left heart catheterization without left ventriculography Description of Procedure: HISTORY: This is a 64-year-old gentleman with history of hypertension who presents to the hospital with complaints of chest pain and positive troponins suggestive of non-STEMI. Patient is advised to have a cardiac catheterization for definitive diagnosis CONSENT:I have discussed the risks, benefits and alternative therapies for the above-mentioned procedure and for both sedation/analgesia as well as necessary blood product administration, if indicated, as they pertain to this patient. The patient has indicated understanding and acceptance of the risks and procedures discussed. PROCEDURE: Patient was brought to the lab in a fasting state. Patient was given some IV sedation. The right wrist is infiltrated with lidocaine and right radial artery was entered using Seldinger technique. A 6-Gambian catheter was left in place and selective coronary arteriography was performed. Patient tolerated the procedure well. Patient went on to have stent placement by Dr. Mckeon. No immediate complications Conscious Sedation: Versed 1mg Fentanyl 50 g Duration 16 minutes HEMODYNAMICS: . The aortic pressure is 130/70. Left ankle end-diastolic pressure is about 10-14. There was no gradient across the aortic valve SELECTIVE CORONARY ARTERIOGRAPHY: LEFT MAIN: Normal length and patent THE LEFT ANTERIOR DESCENDING CORONARY ARTERY: . This is a good caliber vessel with about 70-80% stenosis in the midportion. THE INTERMEDIATE CORONARY ARTERY: Small caliber vessel with about 80-90% stenosis in the proximal portion THE LEFT CIRCUMFLEX AND IS CORONARY ARTERY: . This is a dominant vessel giving rise to good-sized OM branch. The OM branch has about 90% stenosis which seemed to be the culprit vessel THE RIGHT CORONARY ARTERY: . Total occluded in the proximal portion LEFT VENTRICULOGRAPHY: . Not performed FINAL IMPRESSION: Triple-vessel disease with chronic total occlusion of the RCA and critical lesion involving the OM branch of the circumflex and also mid LAD. Small intermediate branch also has about 80% stenosis PLAN: . Revascularization. Dr. Mckeon is going to do stent placement of circumflex and LAD PROGNOSIS: Guarded
[2020-10-15] MEDS: NITROGLYCERIN 1000MCG/10ML SYRINGE INTRACORON ONE ×3 (12:01→12:21)
[2020-10-15] MEDS ORDERED: IOPAMIDOL-370 125ML BTL INJ ONE (12:04)
[2020-10-15] MEDS ORDERED: IOPAMIDOL-370 100ML BTL INJ ONE (12:33)
--- NOTE | 2020-10-15 17:17 | P.HPIM ---
History of Present Illness H&P Date: 10/15/20 Chief Complaint: Chest pain History of presenting complaint: This is a pleasant 65 old patient who follows a Dr. Pro. Chronic stable medical conditions include hypertension, kidney stones, obesity. Patient stop smoking over a year ago. Patient for last few days. Having some chest pain on and off. Sometimes at rest. Yesterday he was helping his son-in-law with the lawnmower and he developed more significant pain. Central in nature. The pain did settle down. [place] like a burning sensation. Some radiation. Overnight he developed more pain on and off. Was rather uncomfortable. He gets some shortness of breath dizziness or lightheaded. This morning was having more chest pain. Begin a bit clammy. Decided to come in. Patient reported for an acute non-Q wave [place]. Taken to the cardiac catheterization lab. Patient is found to have triple vessel disease with total chronic occlusion of the RCA. 3 stents were placed more details and dermatologist notes. Postprocedure. Laying in bed. No chest pain. Review of systems: GEN.: Tired EYES: None HEENT: None NECK: None RESPIRATORY: As above CARDIOVASCULAR: As above GASTROINTESTINAL: None GENITOURINARY: None MUSCULOSKELETAL: None LYMPHATICS: None HEMATOLOGICAL: None PSYCHIATRY: None NEUROLOGICAL: Chronic insomnia Past medical history to include: Hypertension, kidney stones, borderline cholesterol Social history: Patient stop smoking over a year ago. Smoked close to 50 years about averaging half a pack a day. No alcohol. . 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 Physical examination: VITAL SIGNS: 97.9, 65, 16, 139 /86, 99% room air GENERAL: BMI 30.1, laying in bed, comfortable. EYES: Pupils equal. Conjunctiva normal. HEENT: External appearance of nose and ears normal, oral cavity grossly normal. NECK: JVD not raised; masses not palpable. HEART: First and second heart sounds are normal; no edema. LUNGS: Respiratory rate normal; decreased breath sounds. ABDOMEN: Soft, nontender, liver spleen not palpable, no masses palpable. PSYCH: Alert and oriented x3; mood and affect normal. NEUROLOGICAL: Cranial nerves grossly intact; no facial asymmetry, power and sensation grossly intact. LYMPHATICS: No lymph nodes palpable in the axilla and neck INVESTIGATIONS, reviewed in the clinical context: WBC 6.5 hemoglobin 15.7 platelets 311 potassium 4.4 creatinine 0.9 to Troponin I 0.273, 0.694 LDL 156 EKG tracing personally reviewed by me-normal sinus rhythm with nonspecific ST segment changes Chest x-ray film personally reviewed by me-lung camacho clear Assessment and plan: -Acute non-Q wave [place] Patient is put on aspirin, IV heparin Lipitor and then taken to the cardiac catheterization lab -Triple vessel coronary artery disease per cardiac catheterization Patient had 3 stents placed. On aspirin, IV heparin, We will ARB, beta boris , Lipitor -Essential hypertension Beta boris, JOHNIE inhibitor -Obesity BMI 30.1 Weight loss measures and follow with PCP Care was discussed with the patient. Questions answered. Follow with cardiology. Past Medical History Past Medical History: Hypertension Additional Past Medical History / Comment(s): Hx of kidney stones, borderline high cholesterol. History of Any Multi-Drug Resistant Organisms: None Reported Past Surgical History: Cholecystectomy Additional Past Surgical History / Comment(s): colonoscopy, ganglion cyst removed from neck Past Anesthesia/Blood Transfusion Reactions: No Reported Reaction Past Psychological History: No Psychological Hx Reported Smoking Status: Former smoker Past Alcohol Use History: None Reported Past Drug Use History: None Reported - Past Family History Mother Family Medical History: CVA/TIA Medications and Allergies Home Medications Medication Instructions Recorded Confirmed Type amLODIPine [Norvasc] 2.5 mg PO DAILY 10/15/20 10/15/20 History Allergies Allergy/AdvReac Type Severity Reaction Status Date / Time No Known Allergies Allergy Verified 10/15/20 09:18 Physical Exam Vitals: Vital Signs Temp Pulse Pulse Resp BP BP Pulse Ox 10/15/20 13:40 70 16 149/87 10/15/20 13:25 74 16 125/82 10/15/20 13:10 62 16 140/89 100 10/15/20 12:55 65 16 139/86 99 10/15/20 10:47 97.9 F 88 20 126/88 97 10/15/20 10:37 88 20 126/88 97 10/15/20 09:51 88 18 147/91 99 10/15/20 09:03 86 18 154/101 97 10/15/20 08:26 97.9 F 90 18 174/103 98 Intake and Output 10/14/20 10/15/20 10/15/20 22:59 06:59 14:59 Intake Total 250 Balance 250 Intake: IV 250 Other: Weight 95.254 kg Results CBC & Chem 7: 10/15/20 08:36 10/15/20 08:36 Labs: Abnormal Lab Results - Last 24 Hours (Table) 10/15/20 10/15/20 10/15/20 Range/Units 08:36 08:36 08:36 Chloride 108 H (98-107) mmol/L Glucose 124 H (74-99) mg/dL Troponin I 0.273 H* (0.000-0.034) ng/mL Triglycerides 175 H (<150) mg/dL Cholesterol 232 H (<200) mg/dL LDL Cholesterol, Calc 156 H (0-99) mg/dL
[2020-10-15] MEDS: LOSARTAN 25 MG TAB PO SCH (17:40)
--- NOTE | 2020-10-15 18:24 | P.PRCINT ---
Percutaneous Coronary Int. - Percutaneous Coronary Intervention Percutaneous Coronary Intervention: Procedures performed: Left coronary angiography, PCI of OM1 with a 3.0 x 12 mm and 3.0 x 15 mm Xience DEWEY and PCI of mid LAD with a 2.5x 8mm Xience DEWEY Procedure performed by: Dr Yohannes Mckeon DO Indications: Non-STEMI HPI: Patient is a pleasant 65-year-old male with history of hypertension who has been having chest pain with exertion for a few years however presented secondary chest pain at rest. Patient was found to have non-STEMI. A diagnostic heart catheterization was performed by my partner to further assess, please see separate dictation for full details. Patient was found to have 100% RCA with extensive wrly-ef-rniiz collaterals and 80% proximal OM1, 90% mid OM1 and 80% mid LAD stenosis as well as 90% very small caliber ramus intermedius branch. Conscious sedation: Conscious sedation was performed under the direct supervion of myself using Versed and Fentanyl for a total of 44 mins. Description of procedure: The risks, benefits and alternatives of heart catheterization and PCI were explained in detail to the patient before the procedure and informed consent was obtained. Patient had diagnostic coronary angiography performed by my partner and was left on the catheterization table. Patient had been prepped and draped in the usual fashion and a 6Fr sheath had been placed in the right radial artery by my partner. A decision was made to intervene on the OM1 and LAD. Heparin was given for an ACT greater than 250. A 6Fr CLS 3.5 guide was used to engage the left main. A 0.014 BMW wire was placed in the distal OM1. Next predilation was performed using a 2.75 x 12mm balloon. A 3.0 x 15mm Xience DEWEY stent was then placed to the mid OM1 lesion and a 3.0 x 12mm Xience DEWEY was placed to the proximal OM1 lesion. Angiograms were obtained in multiple views. Pre intervention there was 80% and 90% proximal and mid OM1 stenosis and JOSE ALEJANDRO 3 flow and post intervention there was 0% residual stenosis and JOSE ALEJANDRO 3 flow and no evidence of any dissection. Next the 0.014 BMW wire was advanced into the distal LAD. The mid LAD lesion was predilated with a 2.25 x 8mm balloon. Next a 2.5 x 8mm Xience DEWEY was placed. The wire was then removed and final angiograms were obtained. Pre intervention there was 80% mid LAD stenosis and JOSE ALEJANDRO 3 flow and post intervention there was 0% residual stenosis and JOSE ALEJANDRO 3 flow and no evidence of any dissection. The radial sheath was pulled and a TR band was placed with hemostasis achieved. The patient tolerated the procedure well. The patient was transferred to the post catheterization holding area in stable condition. Conclusions: 1. Successful PCI of OM1 with a 3.0 x 12 mm and 3.0 x 15 mm Xience DEWEY and PCI of mid LAD with a 2.5x 8mm Xience DEWEY 2. NSTEMI 3. Residual 100% RCA stenosis with extensive left to right collaterals and 90% very small caliber ramus intermedius Plan: 1. Aggressive risk factor modifications per most recent ACC/AHA guidelines. 2. Continue dual antiplatelets for 12 months. 3. Would continue to treat RCA and ramus medically.
[2020-10-15] MEDS: METOPROLOL TARTRATE 25 MG TAB PO SCH (20:10)
[2020-10-16] MEDS ORDERED: HEPARIN SODIUM,PORCINE 2,500 UNIT in SODIUM CHLORIDE 0.9% 250 ML IRRIGATION PRN (07:00)
[2020-10-16] MEDS ORDERED: HEPARIN SODIUM,PORCINE 10,000 UNIT in SODIUM CHLORIDE 0.9% 1,000 ML IRRIGATION PRN (07:00)
[2020-10-16] MEDS: METOPROLOL TARTRATE 25 MG TAB PO SCH ×2 (09:11→20:51)
[2020-10-16] MEDS: ATORVASTATIN 80 MG TAB PO SCH (09:11)
[2020-10-16] MEDS: LOSARTAN 25 MG TAB PO SCH (09:11)
[2020-10-16] MEDS: ASPIRIN 81 MG PO SCH (09:11)
[2020-10-16] MEDS: PRASUGREL 10 MG TAB PO SCH (09:11)
--- NOTE | 2020-10-16 10:13 | ECHOF ---
Referral Reason:nstemi MEASUREMENTS -------- HEIGHT: 180.3 cm WEIGHT: 95.3 kg BP: IVSd: 1.3 cm (0.6 - 1.1) LVIDd: 3.6 cm (3.9 - 5.3) LVPWd: 1.5 cm (0.6 - 1.1) IVSs: 2.1 cm LVIDs: 1.7 cm LVPWs: 1.8 cm Ao Diam: 3.3 cm (2.0 - 3.7) LA Diam: 3.0 cm (2.7 - 3.8) MV EXCURSION: 11.952 mm (> 18.000) MV EF SLOPE: 58 mm/s (70 - 150) EPSS: 1.2 cm MV E Bennie: 0.63 m/s MV DecT: 253 ms MV A Bennie: 0.82 m/s MV E/A Ratio: 0.77 RAP: 5.00 mmHg RVSP: 19.91 mmHg FINDINGS -------- This was a technically difficult study with suboptimal views. The left ventricular size is normal. There is mild concentric left ventricular hypertrophy. Overa ll left ventricular systolic function is normal with, an EF between 55 - 60 %. The diastolic fillin g pattern is normal for the age of the patient 9.41. The right ventricle is normal in size. The left atrial size is normal. Normal LA size by volume 22+/-6 ml/m2. The right atrial size is normal. 5.0mg of Lumason was utilized for enhancement of images The aortic valve is trileaflet and appears structurally normal. The mitral valve is normal. There is trace mitral regurgitation. The tricuspid valve appears structurally normal. Trace tricuspid regurgitation present. Right jocelyn tricular systolic pressure is normal at < 35 mmHg. There is no pulmonic regurgitation present. The aortic root size is normal. IVC Not well visulized. There is no pericardial effusion. CONCLUSIONS -------- 1. The left ventricular size is normal. 2. There is mild concentric left ventricular hypertrophy. 3. Overall left ventricular systolic function is normal with, an EF between 55 - 60 %. 4. The diastolic filling pattern is normal for the age of the patient 9.41 5. There is trace mitral regurgitation. 6. Trace tricuspid regurgitation present. 7. There is no pericardial effusion. [employer]PER[employer]: Virgie Muniz RDCS
[2020-10-16 11:55] LABS: African American GFR (CKD) >90 (>60 ml/min/1.73 sqM); Anion Gap 7 mmol/L; Blood Urea Nitrogen 12 mg/dL (9-20); Calcium 9.5 mg/dL (8.4-10.2); Carbon Dioxide 28 mmol/L (22-30); Chloride 107 mmol/L (98-107); Glucose 85 mg/dL (74-99); Non-African American GFR(CKD) 87 (>60 ml/min/1.73 sqM); Potassium 4.3 mmol/L (3.5-5.1); Sodium 142 mmol/L (137-145)
--- NOTE | 2020-10-16 12:41 | P.PN ---
Progress Note - Text Progress Note Date: 10/16/20 Chief Complaint: Chest pain History of presenting complaint: This is a pleasant 65 old patient who follows a Dr. Pro. Chronic stable medical conditions include hypertension, kidney stones, obesity. Patient stop smoking over a year ago. Patient for last few days. Having some chest pain on and off. Sometimes at rest. Yesterday he was helping his son-in-law with the lawnmower and he developed more significant pain. Central in nature. The pain did settle down. [place] like a burning sensation. Some radiation. Overnight he developed more pain on and off. Was rather uncomfortable. He gets some shortness of breath dizziness or lightheaded. This morning was having more chest pain. Begin a bit clammy. Decided to come in. Patient reported for an acute non-Q wave [place]. Taken to the cardiac catheterization lab. Patient is found to have triple vessel disease with total chronic occlusion of the RCA. 3 stents were placed more details and program services planner notes. Today: Laying in bed. Comfortable. No chest pain no shortness of breath. Has been out of bed. Review of systems: Was done for constitutional, cardiovascular, GI, pulmonary. relevant finding as above Active Medications Alprazolam (Alprazolam 0.25 Mg Tab) 0.25 mg PO Q6HR PRN PRN Reason: Mild Anxiety Last Admin: 10/15/20 16:05 Dose: 0.25 mg Documented by: Alprazolam (Alprazolam 0.5 Mg Tab) 0.5 mg PO Q6HR PRN PRN Reason: Moderate Anxiety Aspirin (Aspirin 81 Mg) 81 mg PO DAILY FORMERLY [facility], [facility]1983 Last Admin: 10/16/20 09:11 Dose: 81 mg Documented by: Atorvastatin Calcium (Atorvastatin 80 Mg Tab) 80 mg PO DAILY FORMERLY [facility], [facility]1983 Last Admin: 10/16/20 09:11 Dose: 80 mg Documented by: Losartan Potassium (Losartan 25 Mg Tab) 25 mg PO DAILY FOR[facility]LY [facility], [facility]1983 Last Admin: 10/16/20 09:11 Dose: Not Given Documented by: Metoprolol Tartrate (Metoprolol Tartrate 25 Mg Tab) 25 mg PO BID FOR[facility]LY [facility], [facility]1983 Last Admin: 10/16/20 09:11 Dose: 25 mg Documented by: Prasugrel (Prasugrel 10 Mg Tab) 10 mg PO DAILY FOR[facility], [facility] Last Admin: 10/16/20 09:11 Dose: 10 mg Documented by: Past medical history to include: Hypertension, kidney stones, borderline cholesterol Social history: Patient stop smoking over a year ago. Smoked close to 50 years about averaging half a pack a day. No alcohol. . 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 Physical examination: VITAL SIGNS: 98.3, 82, 20, 130/82, 96% room air GENERAL:, laying in bed, comfortable. EYES: Pupils equal. Conjunctiva normal. NECK: JVD not raised; masses not palpable. HEART: First and second heart sounds are normal; no edema. LUNGS: Respiratory rate normal; decreased breath sounds. ABDOMEN: Soft, nontender, liver spleen not palpable, no masses palpable. PSYCH: Alert and oriented x3; mood and affect normal. INVESTIGATIONS, reviewed in the clinical context: October 16: Potassium 4.3 creatinine 0.93 WBC 6.5 hemoglobin 15.7 platelets 311 potassium 4.4 creatinine 0.9 to Troponin I 0.273, 0.694, 1.050 LDL 156 EKG tracing personally reviewed by me-normal sinus rhythm with nonspecific ST segment changes Chest x-ray film personally reviewed by me-lung camacho clear Assessment and plan: -Acute non-Q wave [place] Patient is put on aspirin, IV heparin Lipitor and was taken to the cardiac catheterization lab. -Triple vessel coronary artery disease - cardiac catheterization 3 stents placed. On aspirin, IV heparin-discontinued, Effient added. Added- ARB, beta boris , Lipitor -Essential hypertension Beta obris, ARB -Obesity BMI 30.1 Weight loss measures and follow with PCP -Hypercholesterolemia On Lipitor Care was discussed with the patient. Encouraged to increase activity. Increase Cozaar to 50 mg daily.
--- NOTE | 2020-10-16 15:19 | P.PN ---
Subjective HISTORY OF PRESENTING ILLNESS This is a pleasant 65-year-old male past medical history significant for hypertension, dyslipidemia and former nicotine dependence. He follows in the office with Dr. Crandall. We have been asked to see in consultation for chest pain. He states yesterday he noticed a burning sensation in the midsternal region that radiates through to the back. The symptoms are associated with shortness of breath, dizziness and diaphoresis. The symptoms persisted for most of the day yesterday with no specific aggravating or alleviating factor. He went to bed last night in no real distress however he woke up multiple times through the night with ongoing burning in his chest. When he woke up this morning to come to the hospital for further evaluation. He has had chest pain as recently as 10 minutes ago. The chest discomfort is relieved by nitro. 10/16 Patient seen and examined. Patient denies any further chest pain or pressure. He underwent heart catheterization which showed multivessel CAD with 100% RCA w ith [id number] collaterals, obstructive OM1 and obstructive mid LAD stenosis. He underwent successful PCI of OM1 2 and LAD. There was still very small caliber ramus stenosis which was felt best treated medically. He did have a twinge of different sort of right upper chest burning sensation only lasting for a few minutes which resolved. This does not resemble his angina at all. He was started on his home losartan however he admits this has caused him issues in the past. REVIEW OF SYSTEMS At the time of my exam: CONSTITUTIONAL: Denies fever or chills. CARDIOVASCULAR: Denies chest pain, shortness of breath, orthopnea, PND or palpitations. RESPIRATORY: Denies cough. GASTROINTESTINAL: Denies abdominal pain, diarrhea, constipation, nausea or vomiting. MUSCULOSKELETAL: Denies myalgias. NEUROLOGIC: Denies numbness, tingling, headacbe or weakness. ENDOCRINE: Denies fatigue, weight change, polydipsia or polyurina. GENITOURINARY: Denies burning, hematuria or urgency with micturation. HEMATOLOGIC: Denies history of anemia or bleeding. PHYSICAL EXAMINATION Vitals reviewed. CONSTITUTIONAL: No apparent distress. HEENT: Head is normocephalic. Pupils are equal, round. Sclerae anicteric. Mucous membranes of the mouth are moist. No JVD. No carotid bruit. CHEST EXAMINATION: Lungs are clear to auscultation. No chest wall tenderness is noted on palpation or with deep breathing. HEART EXAMINATION: Regular rate and rhythm. S1, S2 heard. No murmurs, gallops or rub. ABDOMEN: Soft, nontender. Positive bowel sounds. EXTREMITIES: 2+ peripheral pulses, no lower extremity edema and no calf tenderness. NEUROLOGIC EXAMINATION: Patient is awake, alert and oriented x3. ASSESSMENT Unstable angina Non-ST elevated myocardial infarction Hypertension Dyslipidemia Former nicotine dependence Coronary artery disease status post PCI of OM1 and mid LAD. Residual very small caliber ramus and 100% CLIENT RENEWAL SPECIALIST RCA with [id number] collaterals PLAN Echocardiogram performed which shows preserved ejection fraction. Patient underwent successful PCI of OM1 and mid LAD. Continue dual antiplatelets for 12 months. Patient was placed on home losartan however he states has not been taking this and has caused him issues in the past. Continue with beta boris and monitor blood pressure. May consider amlodipine if his issues with the losartan. Objective - Vital Signs Vital signs: Vital Signs Temp 98.2 F 10/16/20 12:30 Pulse 73 10/16/20 12:30 Resp 18 10/16/20 14:00 BP 146/98 10/16/20 12:30 Pulse Ox 97 10/16/20 12:30 Intake & Output 10/15/20 10/16/20 10/16/20 18:59 06:59 18:59 Intake Total 490 240 Balance 490 240 Weight 95.254 kg 99 kg Intake: IV 250 Oral 240 240 Other: Voiding Method Toilet Toilet # Voids 1 2 1 - Labs CBC & Chem 7: 10/15/20 08:36 10/16/20 11:34 Labs: Abnormal Lab Results - Last 24 Hours (Table) 10/15/20 Range/Units 16:02 Troponin I 1.050 H* (0.000-0.034) ng/mL
[2020-10-16] MEDS: amLODIPine 10 MG TAB PO SCH (17:18)
[2020-10-17 04:36] VITALS: TEMP 97.7
[2020-10-17] MEDS: PRASUGREL 10 MG TAB PO SCH (08:44)
[2020-10-17] MEDS: ASPIRIN 81 MG PO SCH (08:44)
[2020-10-17] MEDS: METOPROLOL TARTRATE 25 MG TAB PO SCH (08:45)
[2020-10-17] MEDS: amLODIPine 10 MG TAB PO SCH (08:45)
[2020-10-17] MEDS: ATORVASTATIN 80 MG TAB PO SCH (08:45)
[2020-10-17 08:50] VITALS: PULSE 77; RESP 16
[2020-10-17] MEDS ORDERED: LOSARTAN 50 MG TAB PO SCH (09:00)
[2020-10-17 11:46] VITALS: BP 140/86
--- NOTE | 2020-10-17 21:04 | P.DS ---
Providers Date of admission: 10/16/20 10:18 Expected date of discharge: 10/17/20 Attending physician: Bharat Bhatia Consults: 10/15/20 10:15 Consult Physician Urgent Consulting Provider: [facility] Consult Reason/Comments: Non-STEMI Do you want consulting provider notified?: Yes Primary care physician: [facility] Course: Chief Complaint: Chest pain History of presenting complaint: This is a pleasant 65 old patient who follows a Dr. Pro. Chronic stable medical conditions include hypertension, kidney stones, obesity. Patient stop smoking over a year ago. Patient for last few days. Having some chest pain on and off. Sometimes at rest. Yesterday he was helping his son-in-law with the lawnmower and he developed more significant pain. [place] in nature. The pain did settle down. [place] like a burning sensation. Some radiation. Overnight he developed more pain on and off. Was rather uncomfortable. He gets some shortness of breath dizziness or lightheaded. This morning was having more chest pain. Begin a bit clammy. Decided to come in. Patient reported for an acute non-Q wave [place]. Taken to the cardiac catheterization lab. Patient is found to have triple vessel disease with total chronic occlusion of the RCA. 3 stents were placed more details and workforce management analyst notes. Patient has declined to take Cozaar. Blood pressure is running high. Amlodipine was added.. Today: Feeling well. No chest pain or shortness bed. Up and about. Seen by cardiology. Okay for discharge. Consultation: [facility] Past medical history to include: Hypertension, kidney stones, borderline cholesterol Social history: Patient stop smoking over a year ago. Smoked close to 50 years about averaging half a pack a day. No alcohol. . 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 Physical examination: VITAL SIGNS: 97.7, 77, 16, 140/86, 97% room air GENERAL:, Sitting up, comfortable. EYES: Pupils equal. Conjunctiva normal. NECK: JVD not raised; masses not palpable. HEART: First and second heart sounds are normal; no edema. LUNGS: Respiratory rate normal; decreased breath sounds. ABDOMEN: Soft, nontender, liver spleen not palpable, no masses palpable. PSYCH: Alert and oriented x3; mood and affect normal. INVESTIGATIONS, reviewed in the clinical context: October 16: Potassium 4.3 creatinine 0.93 WBC 6.5 hemoglobin 15.7 platelets 311 potassium 4.4 creatinine 0.9 to Troponin I 0.273, 0.694, 1.050 LDL 156 EKG tracing personally reviewed by me-normal sinus rhythm with nonspecific ST segment changes Chest x-ray film personally reviewed by me-lung camacho clear Assessment and plan: -Acute non-Q wave ME aspirin, IV heparin Lipitor -Triple vessel coronary artery disease - cardiac catheterization 3 stents placed. On aspirin, IV heparin-discontinued, Effient added. ARB-patient refused, beta boris , Lipitor, amlodipine -Essential hypertension Beta boris, amlodipine -Obesity BMI 30.1 Weight loss measures and follow with PCP -Hypercholesterolemia On Lipitor Disposition: Home Plan - Discharge Summary Discharge Rx Participant: No New Discharge Prescriptions: New Prasugrel [Effient] 10 mg PO DAILY #30 tab Aspirin 81 mg PO DAILY #30 chew Atorvastatin [Lipitor] 80 mg PO DAILY #30 tab Metoprolol Tartrate [Lopressor] 25 mg PO BID #60 tab amLODIPine [Norvasc] 10 mg PO DAILY #30 tab Discontinued amLODIPine [Norvasc] 2.5 mg PO DAILY Discharge Medication List Aspirin 81 mg PO DAILY #30 chew 10/17/20 [Rx] Atorvastatin [Lipitor] 80 mg PO DAILY #30 tab 10/17/20 [Rx] Metoprolol Tartrate [Lopressor] 25 mg PO BID #60 tab 10/17/20 [Rx] Prasugrel [Effient] 10 mg PO DAILY #30 tab 10/17/20 [Rx] amLODIPine [Norvasc] 10 mg PO DAILY #30 tab 10/17/20 [Rx] Follow up Appointment(s)/Referral(s): cardiology, [Other] - 1 Week (Patient to schedule appointment, as office is closed at time of discharge. Ensure the office is aware this is following a hospital visit.) Thomas Pro DO [Primary Care Provider] - 1-2 days (Patient to schedule appointment, as office is closed at time of discharge. Ensure the office is aware this is following a hospital visit.) Ambulatory/Diagnostic Orders: Coronavirus SARS CoV-2 by PCR [LAB.AMB] Location: None Selected Patient Instructions/Handouts: *Surgery [facility] - After Heart Catheterization - Cosmetology Instructor Instructions Discharge Disposition: HOME SELF-CARE
== END 2020-10-17 13:57 | disposition home or self-care (01) | DRG 247 ==
LOC: EC 08:25 → 3SCARD 10:16 → OBSVTOIN 10-16 10:18
PROVIDERS: ADMIT Hospitalist; ATTEND Hospitalist
PROC: 027136Z Dilation of Coronary Artery, Two Arteries with Three Drug-eluting Intraluminal Devices, Percutaneous Approach (ICD-10-PCS; principal; 2020-10-15 09:10)
PROC: B2111ZZ Fluoroscopy of Multiple Coronary Arteries using Low Osmolar Contrast (ICD-10-PCS; 2020-10-15 09:10)
PROC: 4A023N7 Measurement of Cardiac Sampling and Pressure, Left Heart, Percutaneous Approach (ICD-10-PCS; 2020-10-15 09:10)
DX: I21.4 Non-ST elevation (NSTEMI) myocardial infarction (principal); I25.110 Atherosclerotic heart disease of native coronary artery with unstable angina pectoris; E66.9 Obesity, unspecified; E78.5 Hyperlipidemia, unspecified; E78.00 Pure hypercholesterolemia, unspecified; I10 Essential (primary) hypertension; Z68.30 Body mass index [BMI] 30.0-30.9, adult; Z79.899 Other long term (current) drug therapy; Z87.891 Personal history of nicotine dependence; Z87.442 Personal history of urinary calculi; Z90.49 Acquired absence of other specified parts of digestive tract; Z87.19 Personal history of other diseases of the digestive system; Z87.39 Personal history of other diseases of the musculoskeletal system and connective tissue; Z98.890 Other specified postprocedural states; Z82.49 Family history of ischemic heart disease and other diseases of the circulatory system; Z82.3 Family history of stroke
CPT/HCPCS: 36415; 71046; 80048; 80053; 80061; 83735; 83880; 84484; 85025; 85379; 85610; 85730; 93005; 93306; 93458; 96361; 96374; 99291

== ENCOUNTER → 2021-10-18 | Outpatient (CLI) | payer BC ==
--- NOTE | 2021-10-18 11:24 | CT ---
CT CHEST FOR PULMONARY EMBOLISM. EXAMINATION TYPE: CT angio chest DATE OF EXAM: 10/18/2021 INDICATION: Arterial aneurysm CT DLP: 1128 mGycm, Automated exposure control for dose reduction was used. CONTRAST: Patient injected with 100 mL of Isovue 370. COMPARISON: r TECHNIQUE: CT of the chest is performed on a spiral scan at 2 mm thick sections. Study is performed with intravenous contrast timed for evaluation for abdominal aortic aneurysm. This will limit additi onal portions of the evaluation. 3-D MIP images reconstructed by the technologist are reviewed on [facility] computer in the coronal and sagittal planes. FINDINGS: No dissection is identified. There is some fusiform prominence of the ascending thoracic aorta. Coron delphine artery calcification is present. No mediastinal or hilar adenopathy enlarged by CT criteria is evident. The ascending aorta diameter at the level of the main pulmonary artery is 3.8 cm. The main pulmonary artery diameter at the bifur cation is 2.8 cm. The aorta transverse dimension aortic arch is 2.7 cm. The aorta above the diaphragm measures 2.4 cm. The aorta at the aortic root measures 3.5 cm. Lung windows are clear. Limited CT section through the upper abdomen. Simple appearing cyst is on the posterior right kidney measuring 4.7 cm and -10 Hounsfield units. Cholecystectomy has been performed. IMPRESSIONS: 1. Fusiform prominence of the ascending thoracic aorta with an AP diameter of 3.8 cm.
== END | disposition home or self-care (01) ==
LOC: RADCTMAIN 07:49
PROVIDERS: ATTEND Family Medicine
DX: I72.9 Aneurysm of unspecified site (principal)
CPT/HCPCS: 71275; Q9967

== ENCOUNTER → 2022-11-01 | Outpatient (CLI) | payer MEDICARE ==
[2022-11-01 14:44] LABS: HCT 52.4 % (39.6-50.0); HGB 16.7 g/dL (13.0-17.0); MCHC 31.9 g/dL (32.0-37.0); MCV 94.2 fL (80.0-97.0); Mean Platelet Volume 9.7 fL (9.5-12.2); NRBC Per 100 WBC 0 /100 WBCS (0.0-0.0); Platelet Count 278 X 10*3/uL (140-440); RBC 5.56 X 10*6/uL (4.40-5.60); RDW 14.8 % (11.5-14.5); WBC 6.62 X 10*3/uL (4.50-10.00)
[2022-11-01 15:30] LABS: Prostate Specific Antigen 1.4 ng/mL (0.00-4.50)
== END | disposition home or self-care (01) ==
LOC: LABWHC1 08:00
PROVIDERS: ATTEND Internal Medicine Endocrinology, Diabetes & Metabolism
DX: E29.1 Testicular hypofunction (principal)
CPT/HCPCS: 36415; 84153; 84403; 85027

== ENCOUNTER → 2023-04-13 | Outpatient (CLI) | payer MEDICARE ==
[2023-04-14 02:10] LABS: MCH 30.9 pg (27.0-32.0); MCHC 32.7 g/dL (32.0-37.0); MCV 94.6 FL (80.0-97.0); Mean Platelet Volume 9.9 FL (9.5-12.2); NRBC Per 100 WBC 0 X 10*3/uL (0.00-0.01); Platelet Count 316 X 10*3/uL (140-440); RBC 5.18 X 10*6/uL (4.40-5.60); RDW 13.9 % (11.5-14.5); WBC 9.45 X 10*3/uL (4.50-10.00)
[2023-04-14 02:20] LABS: Prostate Specific Antigen 1.58 ng/mL (0.000-4.500)
== END | disposition home or self-care (01) ==
LOC: LABWHC1 14:48
PROVIDERS: ATTEND Internal Medicine Endocrinology, Diabetes & Metabolism
DX: E29.1 Testicular hypofunction (principal)
CPT/HCPCS: 36415; 84153; 84403; 85027

== ENCOUNTER → 2023-08-13 | Outpatient (CLI) | payer MEDICARE ==
[2023-08-13 18:53] LABS: HCT 49.7 % (39.6-50.0); HGB 16.1 g/dL (13.0-17.0); MCH 30.7 pg (27.0-32.0); MCHC 32.4 g/dL (32.0-37.0); MCV 94.7 FL (80.0-97.0); Mean Platelet Volume 9.4 FL (9.5-12.2); NRBC Per 100 WBC 0 X 10*3/uL (0.00-0.01); Platelet Count 318 X 10*3/uL (140-440); RBC 5.25 X 10*6/uL (4.40-5.60); RDW 14.3 % (11.5-14.5); WBC 9.11 X 10*3/uL (4.50-10.00)
[2023-08-13 19:03] LABS: Prostate Specific Antigen 1.44 ng/mL (0.000-4.500)
== END | disposition home or self-care (01) ==
LOC: LABWHC1 12:41
PROVIDERS: ATTEND Internal Medicine Endocrinology, Diabetes & Metabolism
DX: E29.1 Testicular hypofunction (principal)
CPT/HCPCS: 36415; 84153; 84403; 85027

== ENCOUNTER → 2023-10-22 | Outpatient (CLI) | payer MEDICARE ==
[2023-10-22 15:15] LABS: Basophils # (A) 0.04 X 10*3/uL (0.00-0.10); Basophils % (A) 0.7 %; Eosinophils # (A) 0.04 X 10*3/uL (0.04-0.35); Eosinophils % (A) 0.7 %; HGB 16.7 g/dL (13.0-17.0); Lymphocytes # (A) 1.63 X 10*3/uL (0.90-5.00); Lymphocytes % (A) 27.5 %; MCH 30.9 pg (27.0-32.0); MCHC 33.4 g/dL (32.0-37.0); MCV 92.4 FL (80.0-97.0); Mean Platelet Volume 9.3 FL (9.5-12.2); Monocytes # (A) 0.63 X 10*3/uL (0.20-1.00); Monocytes % (A) 10.6 %; NRBC Per 100 WBC 0 X 10*3/uL (0.00-0.01); Neutrophils # (A) 3.55 X 10*3/uL (1.80-7.70); Platelet Count 330 X 10*3/uL (140-440); RBC 5.41 X 10*6/uL (4.40-5.60); RDW 13.2 % (11.5-14.5); WBC 5.92 X 10*3/uL (4.50-10.00)
[2023-10-22 15:40] LABS: Anion Gap 10.1 mmol/L (4.00-12.00); Carbon Dioxide 25.9 mmol/L (21.6-31.8); Potassium 4.6 mmol/L (3.5-5.5)
== END | disposition home or self-care (01) ==
LOC: LABPAT 08:33
PROVIDERS: ATTEND Orthopaedic Surgery
DX: Z01.812 Encounter for preprocedural laboratory examination (principal); M75.42 Impingement syndrome of left shoulder
CPT/HCPCS: 36415; 80051; 85025

== ENCOUNTER 2023-11-07 05:55 | Day surgery (SDC) | payer MEDICARE ==
[2023-11-05 08:33] VITALS: BMI 30.1
--- NOTE | 2023-11-06 13:09 | HP ---
HISTORY AND PHYSICAL DATE OF SCHEDULED SURGERY: 11/07/2023. HISTORY OF PRESENT ILLNESS: Aaron Sampson is a 68-year-old gentleman seen with progressive right shoulder pain. We discussed options regarding treatment. He elected to proceed with right shoulder arthroscopy. Consent regarding procedure obtained. PAST MEDICAL HISTORY: Hypertension. PAST SURGICAL HISTORY: Cardiac catheterization with stent and cholecystectomy. DAILY MEDICATIONS: Amlodipine and Lopressor. ALLERGIES: None. SOCIAL HISTORY: Denies tobacco use. PHYSICAL EVALUATION OF RIGHT SHOULDER: Flexion is 150 degrees, abduction is 130 degrees. External rotation is 40 degrees with pain and weakness. He has tenderness along the anterior lateral acromion, bicipital groove, and rotator cuff insertion site. Impingement is positive at 90 degrees. Drop- arm sign is positive. Cross-body adduction sign is positive. Distal neurovascular exam is intact. RADIOGRAPHS: Right shoulder revealed a type 2/3 anterior acromion, [id number] acromioclavicular joint osteoarthritis and cystic changes of the tuberosity. MRI right shoulder revealed partial biceps tear, labral tear, and acromioclavicular joint osteoarthritis. IMPRESSION: 1. Right shoulder impingement with labral tear. 2. Right shoulder partial biceps tendon tear. 3. Right shoulder acromioclavicular joint osteoarthritis. 4. Hypertension. 5. Cardiovascular disease. PLAN: Right shoulder arthroscopy with subacromial decompression, Harvey, biceps tenodesis, debridement, labral tear, possible rotator cuff repair. MMODL / IJN: [id number] /
[~2023-11-07 05:55] MED LIST changes: +HYDROmorphone 0.5 MG/0.5 ML SYRINGE IVP PRN; -LACTATED RINGERS 1,000 ML IV SCH; -LIDOCAINE 1% 20 ML VIAL (10MG/ML) FOR IV START INTRADERMA PRN; +fentaNYL (PF) 50 MCG/ML 2 ML AMP IV PRN
[2023-11-07] MEDS: LIDOCAINE 1% (10MG/ML) FOR IV START INTRADERMA PRN (06:44)
[2023-11-07] MEDS: DEXAMETHASONE SOD PHOSPHATE 4 MG/ML 1 ML VIAL IVP PRN (06:45)
[2023-11-07] MEDS: IV FLUID CONTINUATION 1,000 ML IV ONE (06:48)
[2023-11-07] MEDS: ONDANSETRON 4 MG/2 ML VIAL IM STA (06:48)
[2023-11-07] MEDS: LACTATED RINGERS 1,000 ML IV SCH (06:49)
[2023-11-07] MEDS: MIDAZOLAM 2 MG/2 ML VIAL IVP ONE (07:03)
[2023-11-07 07:21] VITALS: RESP 16
[2023-11-07] MEDS ORDERED: DEXAMETHASONE SOD PHOSPHATE 4 MG/ML 1 ML VIAL ONE (07:25)
[2023-11-07] MEDS ORDERED: PHENYLEPHRINE 10 MG/ML VIAL ONE (07:25)
[2023-11-07] MEDS ORDERED: ROPIVACAINE 5 MG/ML 30 ML VIAL ONE (07:25)
[2023-11-07] MEDS ORDERED: SUCCINYLCHOLINE CHLORIDE 200 MG/10 ML VIAL IV ONE (07:25)
[2023-11-07] MEDS ORDERED: LIDOCAINE 1% INJ 10MG/ML (20 ML MDV) ONE (07:25)
[2023-11-07] MEDS ORDERED: PROPOFOL 10 MG/ML 20 ML VIAL IV ONE (07:25)
[2023-11-07] MEDS ORDERED: fentaNYL (PF) 50 MCG/ML 2 ML AMP ONE (07:25)
--- NOTE | 2023-11-07 09:05 | P.OP ---
Date of Procedure: 11/07/23 Preoperative Diagnosis: Right shoulder impingement Postoperative Diagnosis: 1. Right shoulder rotator cuff tear 2. Right shoulder impingement 3. Right shoulder bicipital tendinitis 4. Right shoulder acromioclavicular joint osteoarthritis 5. Right shoulder superficial superior labral tear Procedure(s) Performed: 1. Right shoulder arthroscopic rotator cuff repair 2. Right shoulder arthroscopic subacromial decompression 3. Right shoulder arthroscopic biceps tenodesis 4. Right shoulder arthroscopic Harvey procedure 5. Right shoulder arthroscopic debridement labral pair Implants: 2Arthrex 4.75 swivel lock anchors Anesthesia: GETA, regional (Interscalene block) Surgeon: Chapito Duarte Certified Forklift Operator #1: Akshat Sierra Estimated Blood Loss (ml): 8 Pathology: none sent Condition: stable Disposition: PACU Indications for Procedure: 68-year-old patient seen with progressive right shoulder pain. After having treatment options discussed, he elected to proceed with arthroscopy. Operative Findings: See description of procedure Description of Procedure: Patient underwent an interscalene block by department of anesthesia. The patient was then taken to the operative suite. The patient underwent a general anesthetic by the department of anesthesia. The patient was placed into a lateral position and secured. There was appropriate padding of the bony prominence. Right shoulder was then prepped and draped in normal sterile orthopedic fashion. We placed the extremity in 10 pounds of longitudinal traction. A posterior incision was now made for a posterior working portal site. The trocar and cannula were inserted into the glenohumeral joint. Arthroscopy was initiated. Spinal needle was now inserted anteriorly, to ascertain the anterior working portal site. An incision was now made in that area, a trocar was inserted followed by a probe. There was some superficial tearing of the superior labrum. There was no significant chondromalacia present. There was hyperemia involving the long head biceps tendon consistent with bicipital tendinitis. I introduced a motorized shaver and debrided out the superficial labral tear. The remainder of the labrum was probed and was found to be stable. At this point I decided to proceed with arthroscopic biceps tenodesis. I introduced the cannula through the anterior portal site. I passed a loop and tack type stitch to the biceps tendon. I now released the biceps from the superior labral anchor. With the assistance of THOM Rodarte I punched a hole in the interval for insertion of an anchor. The suture limb was passed through the eyelet of an Arthrex 4.75 swivel lock anchor. I placed the eyelet into the preplanned hole. I held in position while THOM Rodarte tensioned the suture and deployed the anchor with good fixation noted. The residual suture limb was clipped. We had a stable appearing biceps tenodesis. Instruments were removed from the glenohumeral joint. Utilizing the posterior working portal site, the trocar and cannula were inserted into the subacromial space. Arthroscopy initiated. I made an incision 2 fingerbreadths lateral to the acromion. I introduced my trocar followed by my ArthroCare ablator. I now began ablating thick subacromial bursal tissue, which exposed the undersurface of the anterior acromion. There was diminished subacromial space. There was a very prominent anterior acromion. A motorized bur was introduced and a subacromial decompression was performed. I also excised some osteophytes off the inferior aspect of the distal clavicle. The AC joint w as visualized and noted to be fairly arthritic. The motorized bur was introduced in the anterior portal site and a Harvey procedure was performed without difficulty removing 8 mm off the distal clavicle, decompressing the AC joint nicely. I turned my attention to the rotator cuff. There was a 1 cm rotator cuff tear. I debrided the margins getting down to stable tendon tissue. I abraded the footprint with a motorized bur. With the assistance of THOM Rodarte I passed 3 everted mattress sutures through good bites of rotator cuff tendon. I punched a hole in the footprint area for insertion of an anchor. All 6 limbs of suture were passed through the eyelet of an Arthrex 4.75 swivel lock anchor. I now placed the eyelet into the prepunched hole. I held in position while THOM Rodarte tensioned all 6 limbs of suture and deployed the anchor with good fixation noted. All residual suture limbs were now clipped. We had good compression of the tendon along the entire footprint. Instruments now removed from the portal sites. All portal sites were approximated with nylon suture. Sterile dressings were applied followed by a shoulder sling. Akshat TOMAS assisted in this complex case. The patient was awakened, transferred to a bed, and taken to recovery in stable condition.
[2023-11-07 09:06] VITALS: TEMP 98
--- NOTE | 2023-11-07 09:10 | P.ANPRN ---
Procedure Note - Anesthesia - Nerve Block Performed Right Interscalene Single Time Out Performed: Yes (0703) Date of Procedure: 11/07/23 Location of Patient: PreOp Indication: Acute Post-Operative Pain, Analgesia, Dx/Pain Location (Right shoulder), Requested by Surgeon Specifically requested for management of pain by DrPritesh: Chapito Duarte Sedation Type: Sedate with meaningful contact maintained Preparation: Sterile Prep Position: Supine Catheter: None Needle Types: Pajunk Needle Gauge: 21 Ultrasound used to visualize needle placement: Yes Ultrasound used to observe medication spread: Yes Injectate: 0.5% Ropivacaine (see comment for volume) (30 cc + 4mg of decadron) Blood Aspirated: No Pain Paresthesia on Injection Noted: No Resistance on Injection: Normal Image Stored and Saved: Yes Events: Uneventful and Well Tolerated
[2023-11-07 10:18] VITALS: BP 141/89; PULSE 60
== END 2023-11-07 10:45 | disposition home or self-care (01) ==
LOC: OR 05:55
PROVIDERS: ATTEND Orthopaedic Surgery
DX: S46.211A Strain of muscle, fascia and tendon of other parts of biceps, right arm, initial encounter (principal); M19.011 Primary osteoarthritis, right shoulder; M25.811 Other specified joint disorders, right shoulder; M75.41 Impingement syndrome of right shoulder; M75.101 Unspecified rotator cuff tear or rupture of right shoulder, not specified as traumatic; M75.21 Bicipital tendinitis, right shoulder; I25.10 Atherosclerotic heart disease of native coronary artery without angina pectoris; I10 Essential (primary) hypertension; G89.18 Other acute postprocedural pain; Z79.899 Other long term (current) drug therapy; X58.XXXA Exposure to other specified factors, initial encounter
CPT/HCPCS: 64415; 29807; 29824; 29826; 29827; 29828; C1713 ×2; J2250; J0330; J1100; J0690; J2405; J2001; J3010; J2795; J2704; J2371

== ENCOUNTER → 2023-12-24 | Outpatient (CLI) | payer MEDICARE ==
[2023-12-24 16:30] LABS: HCT 46.9 % (39.6-50.0); HGB 15.7 g/dL (13.0-17.0); MCH 30.9 pg (27.0-32.0); MCHC 33.5 g/dL (32.0-37.0); MCV 92.3 FL (80.0-97.0); Mean Platelet Volume 9.3 FL (9.5-12.2); NRBC Per 100 WBC 0 X 10*3/uL (0.00-0.01); Platelet Count 298 X 10*3/uL (140-440); RBC 5.08 X 10*6/uL (4.40-5.60); RDW 12.2 % (11.5-14.5)
[2023-12-24 17:31] LABS: Prostate Specific Antigen 1.43 ng/mL (0.000-4.500)
== END | disposition home or self-care (01) ==
LOC: LABWHC1 08:15
PROVIDERS: ATTEND Internal Medicine Endocrinology, Diabetes & Metabolism
DX: E29.1 Testicular hypofunction (principal)
CPT/HCPCS: 36415; 84153; 84403; 85027

== ENCOUNTER → 2023-12-28 | Outpatient (CLI) | payer MEDICARE ==
--- NOTE | 2023-12-28 11:08 | XR ---
EXAMINATION TYPE: XR shoulder limited RT DATE OF EXAM: 12/28/2023 COMPARISON: NONE HISTORY: Pain TECHNIQUE: Two views are submitted. FINDINGS: The osseous structures are intact. There is no acute fracture or dislocation. Mild AC joint arthropa thy. No sizable spurring. IMPRESSION: 1. No sizable spurring noted.
== END | disposition home or self-care (01) ==
LOC: RADXRMAIN 10:14
PROVIDERS: ATTEND Orthopaedic Surgery
DX: M07.611 Enteropathic arthropathies, right shoulder (principal)

== ENCOUNTER 2024-05-14 11:19 | Day surgery (SDC) | payer MEDICARE ==
[2024-05-13 08:39] VITALS: BMI 31.5
[2024-05-14 12:07] VITALS: TEMP 98.3
[2024-05-14] MEDS: LACTATED RINGERS 1,000 ML IV SCH (12:11)
[2024-05-14] MEDS: IV FLUID CONTINUATION 1,000 ML IV ONE (12:11)
[2024-05-14] MEDS ORDERED: LIDOCAINE 1% INJ 10MG/ML (20 ML MDV) ONE (13:07)
[2024-05-14] MEDS ORDERED: PROPOFOL 10 MG/ML 20 ML VIAL IV ONE (13:07)
--- NOTE | 2024-05-14 13:28 | P.PCN ---
Date of Procedure: 05/14/24 Procedure(s) Performed: BRIEF HISTORY: Patient is a 69-year-old pleasant white man scheduled for an elective colonoscopy as a part of evaluation of/history of colon polyps PROCEDURE PERFORMED: Colonoscopy. PREOPERATIVE DIAGNOSIS: History of colon polyps. IV sedation per Anesthesia. PROCEDURE: After informed consent was obtained, the patient, was brought into the endoscopy unit. IV sedation was administered by Anesthesia under continuous monitoring. Digital rectal examination was normal. Initially the Olympus CF-160 flexible video colonoscope was then inserted in the rectum, gradually advanced into the cecum without any difficulty. Careful examination was performed as the scope was gradually being withdrawn. Ileocecal valve and the appendiceal orifice were visualized and appeared normal. Prep was excellent. Mucosa of the cecum, ascending colon, transverse colon, descending colon, sigmoid colon, and rectum appeared normal. Retroflexion was performed in the rectum and the internal hemorrhoids were seen. The patient tolerated the procedure well. IMPRESSION: Normal-appearing colon from rectum to cecum no evidence of colorectal neoplasia. Grade 2 internal hemorrhoids. RECOMMENDATIONS: Findings of this examination were discussed with the patient as well as his family. He was advised to have repeat colonoscopy in 10 years..
[2024-05-14 14:01] VITALS: BP 126/75; PULSE 75; RESP 16
== END 2024-05-14 14:13 | disposition home or self-care (01) ==
LOC: ORWHC2ENDO 11:19
PROVIDERS: ATTEND Internal Medicine Gastroenterology
DX: K64.1 Second degree hemorrhoids (principal); I10 Essential (primary) hypertension; I25.10 Atherosclerotic heart disease of native coronary artery without angina pectoris; E78.5 Hyperlipidemia, unspecified; G47.33 Obstructive sleep apnea (adult) (pediatric); Z86.0100 Personal history of colon polyps, unspecified; Z79.82 Long term (current) use of aspirin; Z79.02 Long term (current) use of antithrombotics/antiplatelets; Z79.899 Other long term (current) drug therapy
CPT/HCPCS: 45378

== ENCOUNTER → 2024-05-22 | Outpatient (CLI) | payer MEDICARE ==
[2024-05-22 15:03] LABS: HCT 51.2 % (39.6-50.0); HGB 16.7 g/dL (13.0-17.0); MCHC 32.6 g/dL (32.0-37.0); MCV 92.1 FL (80.0-97.0); Mean Platelet Volume 9.7 FL (9.5-12.2); NRBC Per 100 WBC 0 X 10*3/uL (0.00-0.01); Platelet Count 298 X 10*3/uL (140-440); RBC 5.56 X 10*6/uL (4.40-5.60); RDW 13.1 % (11.5-14.5)
[2024-05-22 15:32] LABS: Prostate Specific Antigen 1.55 ng/mL (0.000-4.500)
== END | disposition home or self-care (01) ==
LOC: LABWHC1 09:50
PROVIDERS: ATTEND Internal Medicine Endocrinology, Diabetes & Metabolism
DX: E29.1 Testicular hypofunction (principal)
CPT/HCPCS: 36415; 84153; 84403; 85027

== ENCOUNTER → 2024-06-05 | Outpatient (CLI) | payer MEDICARE ==
[2024-06-05 16:06] LABS: ALT 25 U/L (10-49); AST 24 U/L (14-35); LDL Cholesterol,Calculated 74.8 mg/dL (0.0-131.0)
== END | disposition home or self-care (01) ==
LOC: LABWHC1 08:32
PROVIDERS: ATTEND Internal Medicine Cardiovascular Disease
DX: E78.2 Mixed hyperlipidemia (principal)
CPT/HCPCS: 36415; 80061; 84450; 84460

== ENCOUNTER → 2024-12-24 | Outpatient (CLI) | payer MEDICARE ==
[2024-12-24 10:43] LABS: HCT 49.9 % (39.6-50.0); HGB 16.3 g/dL (13.0-17.0); MCH 30.1 pg (27.0-32.0); MCHC 32.7 g/dL (32.0-37.0); MCV 92.1 FL (80.0-97.0); NRBC Per 100 WBC 0 X 10*3/uL (0.00-0.01); Platelet Count 292 X 10*3/uL (140-440); RBC 5.42 X 10*6/uL (4.40-5.60); RDW 13.4 % (11.5-14.5); WBC 7.54 X 10*3/uL (4.50-10.00)
[2024-12-24 11:08] LABS: Prostate Specific Antigen 1.43 ng/mL (0.000-4.500)
== END | disposition home or self-care (01) ==
LOC: LABWHC1 07:49
PROVIDERS: ATTEND Internal Medicine Endocrinology, Diabetes & Metabolism
DX: E29.1 Testicular hypofunction (principal)
CPT/HCPCS: 36415; 84153; 84403; 85027